=== PATIENT | female | born 1950 | race Caucasian/White ===

== ENCOUNTER 2018-01-05 14:38 | Emergency (ER) | payer MEDICARE | END 2018-01-05 15:27 | disposition home or self-care (01) | LOC: SCSER 14:38 | DX: G89.29 Other chronic pain (principal); M54.5 Low back pain; M79.7 Fibromyalgia; D50.0 Iron deficiency anemia secondary to blood loss (chronic); E11.9 Type 2 diabetes mellitus without complications; I10 Essential (primary) hypertension; Z79.899 Other long term (current) drug therapy; Z79.891 Long term (current) use of opiate analgesic | CPT/HCPCS: 99282 ==

== ENCOUNTER 2019-10-31 21:16 | Observation (INO) | payer MEDICARE ==
[~2019-10-31 21:16] MED LIST: Iopamidol 370 76% 100 ML VIAL ONE
[2019-10-31] MEDS ORDERED: Morphine 4 MG/ML VIAL ONE (22:29)
[2019-10-31] MEDS ORDERED: Ondansetron PF 4 MG/2 ML Vial ONE (22:29)
--- NOTE | 2019-10-31 22:41 | RAD ---
EXAM: XR Chest 1 View Portable PROVIDED CLINICAL HISTORY: Nausea and vomiting COMPARISON: 06/29/2017 FINDINGS: Cardiac and mediastinal silhouette is unchanged in appearance. Diffuse prominence of the pulmonary in terstitium is redemonstrated. No focal consolidation, pleural fluid or pneumothorax apparent. IMPRESSION: Stable radiographic appearance of the chest.
[2019-10-31] MEDS ORDERED: Diltiazem 125 MG/25 ML ONE (22:49)
[2019-10-31 23:00] LABS: #Eosinphils 0.8 thou/uL (0.0-0.7); #Lymphocytes 2.6 thou/uL (1.20-3.40); #Monocytes 0.6 thou/uL (0.11-0.59); #Neutrophils 5.1 thou/uL (1.40-6.50); %Basophils 0.4 % (0.0-1.0); %Eosinophils 8.4 % (0.0-10.0); %Lymphocytes 28.2 % (21.0-51.0); %Monocytes 6.8 % (0.0-10.0); %Neutrophils 56.3 % (42.0-75.0); Hemoglobin 13.4 g/dL (12.0-16.0); Mean Corpuscular Hemoglobin 29.5 pg (27.0-31.0); Mean Corpuscular Volume 89.5 fL (78.0-98.0); Mean Platelet Volume 7.5 fL (7.4-10.4); Platelet Count 296 thou/uL (130-400); RBC Distribution Width 12.3 % (11.5-14.5); Red Blood Cell (RBC) Count 4.54 mill/uL (4.20-5.40); White Blood Cell (WBC) Count 9.1 thou/uL (4.8-10.8)
[2019-10-31 23:21] LABS: ALT (SGPT) 10 U/L (8-55); AST (SGOT) 13 U/L (5-34); Albumin 3.8 g/dL (3.4-4.8); Alkaline Phosphatase 71 U/L (40-110); Anion Gap 11 mmol/L (10-20); BUN (Urea Nitrogen) 6 mg/dL (9.8-20.1); Bilirubin, Total 0.7 mg/dL (0.2-1.2); CK (CPK) 46 U/L (29-168); Calc. Creatinine Clearance 0 mL/min (70-130); Calcium 9.3 mg/dL (7.8-10.44); Carbon Dioxide 26 mmol/L (23-31); Chloride 99 mmol/L (98-107); Estimated GFR-MDRD 56; Glucose 174 mg/dL (80-115); Lipase 821 U/L (8-78); Potassium 4.1 mmol/L (3.5-5.1); Protein, Total 7.8 g/dL (6.0-8.3); Sodium 132 mmol/L (136-145)
[2019-10-31 23:43] LABS: CKMB 1.1 ng/mL (0-6.6)
[2019-10-31 23:51] LABS: Bilirubin Negative (Negative); Blood, Urine Negative (Negative); Clarity Clear (Clear); Glucose, Urine (Dipstick) 100 mg/dL (Negative); Leukocyte Negative Leu/uL (Negative); Nitrite Negative (Negative); Protein, Urine (Dipstick) Negative (Neg-Trace); Urobilinogen Normal mg/dL (Less than 2)
--- NOTE | 2019-10-31 23:59 | CT ---
EXAM: CT Abdomen Pelvis W Con PROVIDED CLINICAL HISTORY: Abdominal pain COMPARISON: 07/23/2014 FINDINGS: The visualized lung bases demonstrate interstitial thickening. There is enlargement of the uncinate process of the pancreas with surrounding fat stranding. The solid abdominal organs demonstrate an otherwise unremarkable. Changes of prior cholecystectomy. There is no bowel dilatation, additional inflammatory fat stranding, free fluid or free air apparent. Vascular calcifications are seen postoperative and degenerative changes involving the lumbar spine. IMPRESSION: Findings compatible with uncomplicated pancreatitis involving the uncinate process.
[2019-11-01] MEDS ORDERED: Morphine 2 MG/ML SYRINGE ONE (01:17)
[2019-11-01] MEDS ORDERED: Sodium Chloride 0.9% 1,000 ML IV SCH (01:59)
[2019-11-01] MEDS ORDERED: Morphine 2 MG/ML SYRINGE SLOW IVP PRN (02:00)
[2019-11-01 03:00] VITALS: BMI 32.2
[2019-11-01] MEDS ORDERED: Calcium Carbonate 500 MG ChewTAB PO PRN (03:43)
[2019-11-01] MEDS ORDERED: Ondansetron PF 4 MG/2 ML Vial IVP PRN (03:43)
[2019-11-01] MEDS ORDERED: Acetaminophen 325 MG TAB PO PRN (03:43)
[2019-11-01] MEDS ORDERED: Ondansetron ODT 4 MG TAB PO PRN (03:43)
[2019-11-01] MEDS ORDERED: Bisacodyl 10 MG SUPP PR PRN ×2 (03:43→08:13)
[2019-11-01] MEDS ORDERED: Acetaminophen 650 MG Suppository PR PRN (03:43)
[2019-11-01] MEDS ORDERED: Senokot S 8.6-50 MG TAB PO PRN (03:43)
[2019-11-01] MEDS ORDERED: Dextrose 50% Abboject 50 ML SYRINGE SLOW IVP PRN (03:45)
[2019-11-01] MEDS ORDERED: Insulin Regular 300 UNITS/3 ML VIAL SC PRN (03:45)
[2019-11-01] MEDS ORDERED: Dextrose 5% in Water 1,000 ML IV PRN (03:45)
[2019-11-01] MEDS ORDERED: cloNIDine 0.1 MG TAB PO PRN (03:47)
[2019-11-01] MEDS ORDERED: Cyclobenzaprine 10 MG TAB PO PRN (03:48)
[2019-11-01] MEDS ORDERED: Labetalol HCl 100 MG/20 ML VIAL SLOW IVP PRN (03:49)
--- NOTE | 2019-11-01 04:08 | HP ---
CHIEF COMPLAINT: Abdominal discomfort PRIMARY CARE PHYSICIAN: Dr. Dayami Villegas. HISTORY OF PRESENT ILLNESS: The patient is a 69-year-old female with cholecystectomy in the past, diabetes mellitus type 2, and recurrent pancreatitis, presented to the emergency room with above complaints. She initially presented to [facility] and was transferred to this facility for hospital admission. The abdominal pain is localized in the epigastric region. It is [id number]-[id number] in intensity, constant with intermittent waxing. The pain usually gets worse after eating. The pain has been present for last 10 days. The patient has poor appetite due to persistent pain. She felt nauseous, however, denies any vomiting. Her last bowel movement was approximately 5 days ago. She denies any fever, chills, or jaundice. No chest pain, palpitations, or syncope reported. PAST MEDICAL HISTORY: 1. Hypertension. 2. Diabetes mellitus type 2. 3. Hyperlipidemia. 4. Fibromyalgia. 5. Chronic iron-deficiency anemia. 6. History of recurrent pancreatitis. PAST SURGICAL HISTORY: 1. Cholecystectomy. 2. section. 3. Hysterectomy. 4. Colonoscopy. 5. Back surgery. 6. Left hand surgery. ALLERGIES: NO KNOWN DRUG ALLERGIES. CURRENT HOME MEDICATIONS: The patient is unable to recall any of her home medications. will bring the list of medications in a.m. SOCIAL HISTORY: The patient currently lives at home with her . She is full code, makes her own decision with the help of her . She currently smokes less than half pack a day. No alcohol use reported. FAMILY HISTORY: Negative for GI malignancy. REVIEW OF SYSTEMS: All other review of systems reviewed and were found negative. PHYSICAL EXAMINATION: VITAL SIGNS: Showed temperature 98.3, respirations 20, pulse of 96, blood pressure of 214/91 with O2 saturation 97% on room air. GENERAL: A 69-year-old female, in mild distress due to epigastric discomfort. HEENT: Head, atraumatic and normocephalic. Sclerae anicteric. Moist mucous membranes. No oral lesion. NECK: Supple. No JVD. No carotid bruit. LUNGS: Clear to auscultation bilaterally. No wheezing, rales, or rhonchi. HEART: S1 and S2 present. Regular. No rubs or gallops. ABDOMEN: Soft. Significant tenderness in the epigastric region radiating to her back. No rebound or guarding. No costovertebral angle tenderness. Bowel sounds are present. EXTREMITIES: No edema or calf tenderness. NEUROLOGY: Grossly nonfocal. Moves all 4 extremities. PSYCHIATRY: Alert, awake, and oriented x3. Normal affect. PERIPHERAL VASCULAR: Radial pulses palpable bilaterally. MUSCULOSKELETAL: No joint swelling or tenderness. LABORATORY FINDINGS: WBC 9.1 with hemoglobin 13.4. Lipase 821. Troponin 0.032 with normal CK-MB. Sodium 132, potassium 4.1, chloride 99, bicarb 26, BUN of 6, creatinine 0.98. Urinalysis showed ketones with glucose. IMAGING STUDIES: Chest x-ray by my review was negative for infiltrate. CT scan of the abdomen and pelvis with contrast by my review showed findings consistent with pancreatitis involving the uncinate process. EKG by my review showed sinus rhythm without significant ST-T wave changes. IMPRESSION: 1. Epigastric discomfort secondary to acute uncomplicated pancreatitis. This is a 5th episode of episode of pancreatitis in the last few years. 2. Diabetes mellitus type 2. 3. Hypertension. 4. Hyperlipidemia. 5. Type 2 myocardial infarction. 6. Hyponatremia. 7. Obesity with a BMI of 32.2. 8. Dehydration. PLAN: The patient will be monitored on the medical floor. She will be kept n.p.o. except for ice chips. Gastroenterology Team will be consulted. We will continue pain control with morphine as needed. A repeat troponin was negative. We will confirm home medications and start accordingly. She denies any new changes in her medications except for Jardiance that was started approximately 1 month ago. Plan was discussed with the patient in detail. She stated understanding. Job ID: [id number]
[2019-11-01] MEDS: Insulin Regular 300 UNITS/3 ML VIAL SC PRN (05:05)
[2019-11-01] MEDS: Dextrose 5 % And 0.9 % NaCl 1,000 ML IV SCH ×4 (06:26→23:50)
[2019-11-01] MEDS ORDERED: Sodium Chloride 0.65% Nasal 44 ML BOT EA NARE PRN (08:13)
[2019-11-01] MEDS ORDERED: Zolpidem Tartrate 5 MG TAB PO PRN (08:13)
[2019-11-01] MEDS ORDERED: Cepastat Lozenges 1 LOZ PO PRN (08:13)
[2019-11-01] MEDS ORDERED: Loperamide HCl 2 MG CAP PO PRN (08:13)
[2019-11-01] MEDS ORDERED: Diabetic Tussin 200 MG/10 ML UDCUP PO PRN (08:13)
[2019-11-01] MEDS ORDERED: Loratadine 10 MG TAB PO PRN (08:13)
[2019-11-01] MEDS: Carvedilol 6.25 MG TAB PO SCH ×2 (08:37→17:15)
[2019-11-01] MEDS: Lisinopril 20 MG TAB PO SCH ×2 (08:37→20:48)
[2019-11-01] MEDS: Famotidine 20 MG TAB PO SCH ×2 (08:39→20:48)
[2019-11-01] MEDS ORDERED: cloNIDine 0.1 MG TAB PO SCH ×2 (09:00→21:00)
--- NOTE | 2019-11-01 11:52 | PDOC.HOSPP ---
- Subjective Encounter Date: 11/01/19 Encounter Time: 08:50 Subjective: Patient seen and examined. No new complaints. No overnight events - Objective Vital Signs & Weight: Vital Signs (12 hours) Temp Pulse Resp BP BP BP Pulse Ox 11/01/19 11:32 97.5 F L 71 16 159/79 H 95 11/01/19 08:37 115/71 11/01/19 07:59 97.6 F 87 16 115/71 96 11/01/19 04:21 97.6 F 94 18 126/76 95 11/01/19 02:41 98.4 F 94 18 179/98 H 94 L Weight Weight 181 lb 14.102 oz Result Diagrams: 10/31/19 22:52 10/31/19 22:52 Additional Labs: Accuchecks 11/01/19 11/01/19 11/01/19 11:37 09:16 04:53 POC Glucose 122 H 147 H 181 H Radiology Reviewed by me: Yes Hospitalist ROS - Review of Systems ENT: denies: ear pain, ear discharge, nose pain, nose discharge, nose congestion , mouth pain, mouth swelling, throat pain, throat swelling, other Respiratory: denies: cough, dry, shortness of breath, hemoptysis, SOB with excertion, pleuritic pain, sputum, wheezing, other Cardiovascular: denies: chest pain, palpitations, orthopnea, paroxysmal noc. dyspnea, edema, light headedness, other Gastrointestinal: denies: nausea, vomiting, abdominal pain, diarrhea, constipation, melena, hematochezia, other Genitourinary: denies: dysuria, frequency, incontinence, hematuria, retention, other Musculoskeletal: denies: neck pain, shoulder pain, arm pain, back pain, hand pain, leg pain, foot pain, other - Medication Medications: Active Medications Generic Name Dose Route Start Last Admin Trade Name Freq PRN Reason Stop Dose Admin Carvedilol 12.5 mg 11/01/19 08:00 11/01/19 08:37 Coreg PO Not Given BID-WM KRISTOPHER Famotidine 20 mg 11/01/19 09:00 11/01/19 08:39 Pepcid PO 20 mg BID KRISTOPHER Administration Dextrose/Sodium Chloride 1,000 mls @ 125 mls/hr 11/01/19 03:45 11/01/19 06:26 D5 0.9% Ns IV Not Given .Q8H [facility] Insulin Human Regular 0 units 11/01/19 03:45 11/01/19 05:05 Humulin R SC 2 unit .MODERATE SLIDING SC PRN Administration Moderate Correctional Scale Lisinopril 20 mg 11/01/19 09:00 11/01/19 08:37 Zestril PO Not Given BID KRISTOPHER Morphine Sulfate 2 mg 11/01/19 02:00 11/01/19 05:07 Morphine SLOW IVP 11/01/19 12:21 2 mg Q2H PRN Administration Pain Sodium Chloride 10 ml 11/01/19 09:00 11/01/19 08:40 Flush - Normal Saline IVF Not Given Q12HR KRISTOPHER - Exam General Appearance: NAD, awake alert Eye: PERRL, anicteric sclera ENT: normocephalic atraumatic, no oropharyngeal lesions Neck: supple, symmetric, no JVD, no thyromegaly Heart: RRR, no murmur, no gallops, no rubs Respiratory: CTAB, no wheezes, no rales, no ronchi Gastrointestinal: soft, non-tender, non-distended, normal bowel sounds Extremities: no cyanosis, no clubbing, no edema Skin: normal turgor, no lesions Neurological: no focal deficits Musculoskeletal: normal tone, normal strength Psychiatric: normal affect, normal behavior, A&O x 3 Hosp A/P (1) Acute pancreatitis Code(s): K85.90 - ACUTE PANCREATITIS WITHOUT NECROSIS OR INFECTION, UNSP Status: Acute (2) Diabetes type 2, controlled Code(s): E11.9 - TYPE 2 DIABETES MELLITUS WITHOUT COMPLICATIONS Status: Acute (3) Hypertension Code(s): I10 - ESSENTIAL (PRIMARY) HYPERTENSION Status: Chronic (4) Obesity (BMI 30.0-34.9) Code(s): E66.9 - OBESITY, UNSPECIFIED Status: Chronic (5) Anxiety and depression Code(s): F41.9 - ANXIETY DISORDER, UNSPECIFIED; F32.9 - MAJOR DEPRESSIVE DISORDER, SINGLE EPISODE, UNSPECIFIED Status: Chronic - Plan old records reviewed/req 11/01/19 continue NPO, has improvement, GI consulted, advance diet as tolerated medication reviewed and continue to provide symptomatic treatment
[2019-11-01] MEDS: HYDROcodone/Acetaminophen 5/325 mg Tablet PO PRN ×2 (12:59→20:53)
--- NOTE | 2019-11-01 16:38 | CON ---
DATE OF CONSULTATION: 11/01/2019 REQUESTING PHYSICIAN: Dr. Pimentel. REASON FOR CONSULTATION: Pancreatitis. HISTORY OF PRESENT ILLNESS: Sania Ren is a very pleasant 69-year-old woman, who was admitted to the hospital overnight with recurrent pancreatitis. She has a history of obesity, diabetes type 2. She has had a cholecystectomy in the past. She reports 4 prior episodes of recurrent acute pancreatitis. She states her last episode was almost a year ago elsewhere when she was hospitalized for about a week. She states that her pancreatitis has been characterized as idiopathic. She does not drink alcohol. At one point, it was thought that her Januvia was possibly causing pancreatitis since that was discontinued, but she has not gone back on that. She does smoke. On this occasion, she says that for about the past 10 days, she has been having epigastric pain. This is essentially constant with periods of exacerbation, it worsened last night, which prompted her presentation. She has had nausea, but no vomiting. Her last bowel movement was 4 to 5 days ago. She has been afebrile. Today, her pain has been well controlled. She is receiving normal saline at 100 mL/h. Laboratory studies were all favorable and a CT of the abdomen and pelvis just demonstrates some stranding and edema of the uncinate process of the pancreas with no complications and changes of prior cholecystectomy. REVIEW OF SYSTEMS: Full review of systems including constitutional; head, eyes, ears, nose, and throat; GI; ; cardiovascular; respiratory; musculoskeletal; neurologic systems is negative except as noted in the HPI. PAST MEDICAL HISTORY: Cholecystectomy, hysterectomy, back surgery, , recurrent acute pancreatitis, diabetes type 2, fibromyalgia, hypertension, hyperlipidemia, obesity, 2014 EGD normal, colonoscopy with poor bowel prep. FAMILY HISTORY: Negative for GI malignancy. SOCIAL HISTORY: The patient does smoke less than a pack of cigarettes per day. No alcohol use. ALLERGIES: NO KNOWN DRUG ALLERGIES. OUTPATIENT MEDICATIONS: 1. Hydrocodone p.r.n. 2. Glimepiride. 3. Clonidine. 4. Lisinopril. 5. Pravastatin. 6. Labetalol. 7. Tramadol. 8. Duloxetine. 9. Cyclobenzaprine. 10. Jardiance. 11. Insulin. PHYSICAL EXAMINATION: VITAL SIGNS: Temperature 97.5, pulse 71, blood pressure 159/79, and 95% oxygen saturation on room air. GENERAL: A 69-year-old woman, lying in bed comfortably, in no distress. She is somnolent, but arousable, unable to answer questions appropriately. SKIN: No jaundice. No rashes were palpable. EYES: No scleral icterus. Extraocular movements are intact. ENT: Mucous membranes are moist. No oral lesions. LYMPH: No submandibular or supraclavicular lymphadenopathy. THYROID: Nontender to palpation. HEART: Regular rate and rhythm. LUNGS: Clear to auscultation bilaterally. ABDOMEN: Bowel sounds are hypoactive, but present. The abdomen is soft. Some mild tenderness to palpation in the epigastrium, but no guarding or rebound tenderness. EXTREMITIES: No peripheral edema. VESSELS: Radial pulses 2+ bilaterally. NEURO: Cranial nerves 2 through 12 intact bilaterally. No focal deficits. LABORATORY STUDIES: WBC 9.1, hemoglobin 13.4, platelets 296. Sodium 132, potassium 4.1, BUN 6, creatinine 0.98, glucose 147, total bilirubin 0.7, alkaline phosphatase 71, AST 13, ALT 10, albumin 3.8, lipase elevated at 821. IMAGING STUDIES: Chest x-ray shows prominence of the pulmonary interstitium, which is stable. No acute processes. CT of the abdomen and pelvis demonstrates postoperative changes in cholecystectomy. There is some stranding and edema of the uncinate process of the pancreas with no complications. The CT is otherwise unremarkable. ASSESSMENT AND PLAN: Acute recurrent pancreatitis, uncomplicated. The etiology of the patient's recurrent episodes of pancreatitis is unknown. She does not drink alcohol. She is post cholecystectomy and LFTs are normal, so biliary etiology is unlikely. I discussed with the patient that in the coming weeks after resolution of this episode, we will try to help arrange for referral for endoscopic ultrasound, examination of the pancreas, to rule out any structural abnormality that might be underlying this. I doubt any neoplastic or malignant process, given the multiple episodes over several years. With regard to this acute episode, laboratory studies are all favorable. She is being appropriately resuscitated and treated with pain control. I would keep her n.p.o. for the rest of the day. Once her pain requirements are decreasing and she is starting to feel hungry, could hopefully try to advance diet as tolerated within the next couple of days. No other recommendations from a GI perspective at this time. Thank you for the consultation. Please call anytime with questions or concerns. Job ID: [id number]
[2019-11-01] MEDS ORDERED: DULoxetine 30 MG CAP PO SCH (21:00)
[2019-11-02] MEDS: Insulin Regular 300 UNITS/3 ML VIAL SC PRN ×2 (03:37→09:20)
[2019-11-02 06:13] LABS: #Eosinphils 0.6 thou/uL (0.0-0.7); #Lymphocytes 1.6 thou/uL (1.20-3.40); #Monocytes 0.5 thou/uL (0.11-0.59); #Neutrophils 2.6 thou/uL (1.40-6.50); %Basophils 0.5 % (0.0-1.0); %Eosinophils 11.3 % (0.0-10.0); %Lymphocytes 29.8 % (21.0-51.0); %Monocytes 9.3 % (0.0-10.0); %Neutrophils 49.1 % (42.0-75.0); Hemoglobin 12.2 g/dL (12.0-16.0); Mean Corpuscular HGB CONC 32.3 g/dL (32.0-36.0); Mean Corpuscular Hemoglobin 28.7 pg (27.0-31.0); Mean Platelet Volume 7.7 fL (7.4-10.4); Platelet Count 252 thou/uL (130-400); RBC Distribution Width 12.3 % (11.5-14.5); Red Blood Cell (RBC) Count 4.25 mill/uL (4.20-5.40); White Blood Cell (WBC) Count 5.3 thou/uL (4.8-10.8)
[2019-11-02 06:40] LABS: ALT (SGPT) 9 U/L (8-55); AST (SGOT) 16 U/L (5-34); Albumin 3.2 g/dL (3.4-4.8); Alkaline Phosphatase 60 U/L (40-110); Anion Gap 12 mmol/L (10-20); BUN (Urea Nitrogen) 7 mg/dL (9.8-20.1); Bilirubin, Total 0.4 mg/dL (0.2-1.2); Calc. Creatinine Clearance 77 mL/min (70-130); Calcium 8.5 mg/dL (7.8-10.44); Carbon Dioxide 19 mmol/L (23-31); Chloride 106 mmol/L (98-107); Estimated GFR-MDRD 63; Globulin 3.4 g/dL (2.4-3.5); Glucose 212 mg/dL (80-115); Lipase 324 U/L (8-78); Magnesium 1.6 mg/dL (1.6-2.6); Phosphorus 2.4 mg/dL (2.3-4.7); Protein, Total 6.6 g/dL (6.0-8.3); Sodium 133 mmol/L (136-145); Triglycerides 81 mg/dL (Less than 150)
[2019-11-02] MEDS ORDERED: Dextrose 5 % And 0.9 % NaCl 1,000 ML IV SCH (08:22)
[2019-11-02] MEDS ORDERED: Sodium Chloride 0.45% 1,000 ML IV SCH (08:30)
[2019-11-02] MEDS ORDERED: Glimepiride 4 MG TAB PO SCH (09:00)
[2019-11-02] MEDS: Lisinopril 20 MG TAB PO SCH (09:19)
[2019-11-02] MEDS: Carvedilol 6.25 MG TAB PO SCH ×2 (09:19→18:36)
[2019-11-02] MEDS: Famotidine 20 MG TAB PO SCH (09:20)
[2019-11-02 16:22] VITALS: TEMP 98.7
[2019-11-02 18:37] VITALS: BP 144/75
--- NOTE | 2019-11-03 15:27 | DIS ---
DATE OF ADMISSION: 11/01/2019 DATE OF DISCHARGE: 11/02/2019 PRIMARY CARE PHYSICIAN: Dr. Dayami Villegas. DISCHARGE DISPOSITION: Home. PRIMARY DISCHARGE DIAGNOSES: Acute pancreatitis. SECONDARY DISCHARGE DIAGNOSES: Diabetes type 2, anxiety and depression, hypertension, obesity. PRIMARY PROCEDURE/OPERATION: None. RADIOLOGIST INVESTIGATION: Abdomen and pelvis CT scan showed uncomplicated pancreatitis. SIGNIFICANT LABORATORY DATA: WBC 5.3, hemoglobin 12.2, platelet 252. Sodium 133, creatinine 0.89, lipase 324. DISCHARGE MEDICATION: 1. Clonidine 0.1 mg p.o. at bedtime. 2. Flexeril 10 mg t.i.d. p.r.n. 3. Cymbalta 60 mg bedtime. 4. Empagliflozin 10 mg daily. 5. Glimepiride 4 mg daily. 6. Gardner 5 mg one or two tablets q.6 hourly p.r.n. 7. Tresiba 40 units subcu daily. 8. Labetalol 100 mg daily. 9. Lisinopril 20 mg b.i.d. 10. Pravastatin 20 mg p.o. at bedtime. 11. Tramadol ER 300 mg p.o. daily. CONTRAINDICATION: None. CODE STATUS: Full code. INPATIENT MAINTENANCE TECHNICIAN 3RD SHIFT: Dr. Braden Kimble was consulted while in the hospital. TEST RESULTS PENDING ON DISCHARGE: None. ALLERGIES: NO KNOWN DRUG ALLERGY. DISCHARGE PLAN: Posthospital the patient is instructed to follow up with Dr. Braden Kimble for outpatient endoscopic ultrasound. HOSPITAL COURSE: A 69-year-old female, who was admitted by Dr. Wily Pimentel. Please see his H and P for further details. The patient presented to emergency room with epigastric abdominal pain. Her CT abdomen and pelvis consistent with an uncomplicated pancreatitis. The patient routine blood test also showed elevated lipase. The patient was admitted to the hospital and she was treated in standard fashion with n.p.o., pain controlled with narcotics, IV fluid, and gastroenterology consultation. The next day, the patient had significant improvement. Her lipase improved and we advanced her diet slowly to regular low-fat, low-cholesterol diet. The patient was instructed to follow up with Gastroenterology because the patient is recommended to have outpatient endoscopic ultrasound for further evaluation. The patient was seen and examined on the day of discharge. The patient was discharged on November 02, 2019, and I have seen this patient at bedside. DISCHARGE PHYSICAL EXAMINATION: VITAL SIGNS: On the day of discharge, her vital signs currently temperature 98.7, pulse 67, respiratory rate 14, saturation 96%, blood pressure 154/75. Weight 181 pounds. GENERAL: The patient is alert and oriented x3. HEAD: Normocephalic, atraumatic. EYES: Pupils round, reactive to light. Extraocular muscle intact. ENT: Oropharynx within normal limits. Moist mucous membranes. No oral lesion. No pharyngeal erythema. No exudate. NECK: Supple. No JVD. No meningeal signs of irritation. LUNGS: Clear to auscultation without any rhonchi or rales. CARDIAC: S1, S2. Regular without any murmur. No gallop. No rub. ABDOMEN: Soft, bowel sounds present, nontender, nondistended. No organomegaly. No mass. EXTREMITIES: No edema. NEUROLOGIC: Nonfocal examination. Job ID: [id number]
--- NOTE | 2019-11-06 10:33 | DIS ---
DATE OF ADMISSION: 11/01/2019 DATE OF DISCHARGE: 11/02/2019 DISCHARGE DISPOSITION: Home. PRIMARY DISCHARGE DIAGNOSIS: Acute pancreatitis. SECONDARY DISCHARGE DIAGNOSES: Diabetes type 2, anxiety and depression, hypertension, obesity with BMI 33. PRIMARY PROCEDURE/OPERATION: None. RADIOLOGIST INVESTIGATION: Abdomen and pelvis CT scan showed acute pancreatitis. Chest x-ray normal. SIGNIFICANT LABORATORY DATA: CBC normal. Lipase 324 on discharge. BMP normal. LFT normal. DISCHARGE MEDICATIONS: The patient will continue all her previous medication without any change. CONTRAINDICATION: None. CODE STATUS: Full code. INPATIENT ACCOUNTS RECEIVABLE COORDINATOR: GI team was consulted while in hospital. TEST RESULT PENDING ON DISCHARGE: None. ALLERGIES: NO KNOWN DRUG ALLERGIES. DISCHARGE PLAN: Post hospital, the patient will follow up with primary care physician as well as GI and the patient will get outpatient endoscopic ultrasound referral. HOSPITAL COURSE: A 69-year-old female, who was admitted for acute pancreatitis. Please see Dr. Pimentel's H and P for more detail. Gastroenterology was consulted while in hospital. The patient had acute pancreatitis which was uncomplicated and she was treated with standard fashion with n.p.o., hydration, IV fluid, and pain control with pain medication and condition improved. The patient will need outpatient endoscopic ultrasound that is why the patient will follow up with GI. The patient was stable for discharge. Job ID: [id number]
== END 2019-11-02 17:50 | disposition home or self-care (01) ==
LOC: ERS 21:16 → SURG B 11-01 02:01 → INTOOBSV 11-01 02:01
PROVIDERS: ADMIT Internal Medicine; ATTEND Internal Medicine
DX: K85.90 Acute pancreatitis without necrosis or infection, unspecified (principal); I10 Essential (primary) hypertension; E11.9 Type 2 diabetes mellitus without complications; E66.9 Obesity, unspecified; F17.210 Nicotine dependence, cigarettes, uncomplicated; F41.9 Anxiety disorder, unspecified; F32.9 Major depressive disorder, single episode, unspecified; D50.9 Iron deficiency anemia, unspecified; E78.5 Hyperlipidemia, unspecified; E86.0 Dehydration; I21.A1 Myocardial infarction type 2; Z68.32 Body mass index [BMI] 32.0-32.9, adult; Z79.4 Long term (current) use of insulin; Z79.899 Other long term (current) drug therapy
CPT/HCPCS: 71045; 74177; 80053 ×2; 81003; 82550; 82553; 82962 ×2; 83690 ×2; 83735; 83880; 84100; 84478; 84484 ×2; 85025 ×2; 86140; 93005; 96361; 96374; 96375; 96376 ×2; 99285; G0378 ×2; 36415; 36416; J1815; J2270; J2405; Q9967

== ENCOUNTER 2019-12-19 16:00 | Emergency (ER) | payer MEDICARE ==
[~2019-12-19 16:00] MED LIST changes: -Iopamidol 370 76% 100 ML VIAL ONE; +Iopamidol-370 76% 500 ML 1 ML ONE
[2019-12-19] MEDS ORDERED: Albuterol Sulfate 2.5 mg/3 ml Neb ONE (16:18)
[2019-12-19] MEDS ORDERED: Albuterol Sulfate 2.5 mg/0.5 ml Neb ONE (16:18)
[2019-12-19] MEDS ORDERED: Azithromycin 500 MG VIAL ONE (16:30)
[2019-12-19] MEDS ORDERED: Dexamethasone 10 MG/ML VIAL ONE (16:30)
[2019-12-19] MEDS ORDERED: cefTRIAXone\\ROCEPHIN 2 GM VIAL ONE (16:30)
[2019-12-19] MEDS ORDERED: Magnesium 2 GM/50 ML BAG (IN WATER) ONE (16:30)
[2019-12-19 16:43] LABS: Actual Bicarbonate (HCO3a) 27.7 mEq/L (22-28); Analyzer IN Cardio ER; Base Excess (BEa) 2.3 mEq/L (-2.0 to +3.0); CO2 Tension 46.2 mmHg (35.0-45.0); Calcium, Ionized 1.16 mmol/L (1.12-1.30); Carboxyhemoglobin (COHb) 0.6 gm% (0.0-3.0); Hemoglobin (Hb) 12.9 g/dL (12.0-16.0); O2 Tension (PaO2) 73.9 mmHg (> 70.0)
[2019-12-19 16:46] LABS: Puncture Site RRA
[2019-12-19 16:57] LABS: #Eosinphils 0.8 thou/uL (0.0-0.7); #Monocytes 0.4 thou/uL (0.11-0.59); #Neutrophils 2.7 thou/uL (1.40-6.50); %Basophils 0.3 % (0.0-1.0); %Lymphocytes 44.2 % (21.0-51.0); %Monocytes 5.1 % (0.0-10.0); %Neutrophils 39.4 % (42.0-75.0); Hemoglobin 12.4 g/dL (12.0-16.0); Mean Corpuscular HGB CONC 33.3 g/dL (32.0-36.0); Mean Corpuscular Hemoglobin 29.6 pg (27.0-31.0); Mean Platelet Volume 7.7 fL (7.4-10.4); Platelet Count 248 thou/uL (130-400); RBC Distribution Width 12.7 % (11.5-14.5); Red Blood Cell (RBC) Count 4.19 mill/uL (4.20-5.40); White Blood Cell (WBC) Count 6.9 thou/uL (4.8-10.8)
--- NOTE | 2019-12-19 17:00 | RAD ---
PORTABLE CHEST: 12/19/19 HISTORY: Cough. COMPARISON: 10/31/19 exam and 06/29/17 study. Heart size within normal limits. Chronic interstitial lung changes are seen. The interstitial change s in the lung bases appears slightly more prominent than the 10/31/29 exam but I think the difference is just technique related. IMPRESSION: Chronic appearing lung change. No definite acute process. POS: [facility]
[2019-12-19 17:21] LABS: ALT (SGPT) 11 U/L (8-55); AST (SGOT) 14 U/L (5-34); Alkaline Phosphatase 94 U/L (40-110); Anion Gap 11 mmol/L (10-20); BUN (Urea Nitrogen) 13 mg/dL (9.8-20.1); Bilirubin, Total 0.3 mg/dL (0.2-1.2); CK (CPK) 102 U/L (29-168); Calc. Creatinine Clearance 0 mL/min (70-130); Calcium 9.2 mg/dL (7.8-10.44); Carbon Dioxide 28 mmol/L (23-31); Chloride 100 mmol/L (98-107); Estimated GFR-MDRD 46; Globulin 4.3 g/dL (2.4-3.5); Glucose 244 mg/dL (80-115); Lipase 52 U/L (8-78); Potassium 4.3 mmol/L (3.5-5.1); Protein, Total 8.3 g/dL (6.0-8.3); Sodium 135 mmol/L (136-145)
[2019-12-19 17:39] LABS: CKMB 1.8 ng/mL (0-6.6)
[2019-12-19 18:31] LABS: Bilirubin Negative (Negative); Blood, Urine Negative (Negative); Clarity Clear (Clear); Glucose, Urine (Dipstick) 300 mg/dL (Negative); Leukocyte Negative Leu/uL (Negative); Nitrite Negative (Negative); Protein, Urine (Dipstick) Negative (Neg-Trace); Urobilinogen Normal mg/dL (Less than 2)
[2019-12-19 19:08] LABS: Troponin I 0.045 ng/mL (< 0.028)
--- NOTE | 2019-12-19 19:11 | CT ---
CT ANGIO OF CHEST PERFORMED WITH INTRAVENOUS CONTRAST ENHANCEMENT WITH 3D RECONSTRUCTIONS: 12/19/19 HISTORY: Cough, onset three weeks ago. Surgical history of cholecystectomy. COMPARISON: CT abdomen and pelvis dated 05/31/19. There are chronic interstitial appearing lung changes seen. There is a prominent bulla in the left lo wer lobe. I do not see any confluent infiltrative process. The opacity in the lung bases which shows somewhat ground glass appearance probably related to atelectasis and chronic reticular changes. It is fairly similar to the previous 10/31/19 exam. There is some mild mediastinal and hilar lymphadenopathy. These are smaller nodes. More numerous than typically seen but probably reactive on the basis of the interstitial lung disease. Thyroid gland is normal in size. Thoracic aorta is normal in caliber. There is good pulmonary artery opacification and no CT evidence for pulmonary embolus. The visualized liver parenchyma shows no focal findings. IMPRESSION: 1. Interstitial fibrotic lung change. No definite new infiltrative process. 2. No CT evidence for pulmonary embolus. POS: [facility]
== END 2019-12-19 19:32 | disposition home or self-care (01) ==
LOC: ERS 16:00
DX: J44.1 Chronic obstructive pulmonary disease with (acute) exacerbation (principal); D64.9 Anemia, unspecified; E11.9 Type 2 diabetes mellitus without complications; I10 Essential (primary) hypertension; E78.00 Pure hypercholesterolemia, unspecified; F17.210 Nicotine dependence, cigarettes, uncomplicated; Z79.899 Other long term (current) drug therapy
CPT/HCPCS: 36415; 71045; 71275; 80053; 81003; 82550; 82553; 82805; 83605; 83690; 83880; 84484; 85025; 85379; 87040; 87804; 93005; 94640; 96365; 96367; 96368; 96375; J0456; J0696; J1100; J3475; J7611; J7620; Q9967

== ENCOUNTER 2020-01-13 11:48 | Emergency (ER) | payer MEDICARE ==
[2020-01-13 13:01] LABS: #Basophils 0.1 thou/uL (0.0-0.2); #Eosinphils 1.5 thou/uL (0.0-0.7); #Lymphocytes 2.8 thou/uL (1.20-3.40); #Monocytes 0.4 thou/uL (0.11-0.59); #Neutrophils 3.5 thou/uL (1.40-6.50); %Basophils 1.3 % (0.0-1.0); %Eosinophils 17.9 % (0.0-10.0); %Lymphocytes 33.6 % (21.0-51.0); %Monocytes 5.2 % (0.0-10.0); Hemoglobin 12.4 g/dL (12.0-16.0); Mean Corpuscular HGB CONC 32.7 g/dL (32.0-36.0); Mean Corpuscular Hemoglobin 29.6 pg (27.0-31.0); Mean Corpuscular Volume 90.6 fL (78.0-98.0); Mean Platelet Volume 7.1 fL (7.4-10.4); Platelet Count 332 thou/uL (130-400); RBC Distribution Width 13.3 % (11.5-14.5); Red Blood Cell (RBC) Count 4.19 mill/uL (4.20-5.40); White Blood Cell (WBC) Count 8.4 thou/uL (4.8-10.8)
[2020-01-13 13:22] LABS: ALT (SGPT) 10 U/L (8-55); AST (SGOT) 12 U/L (5-34); Albumin 3.8 g/dL (3.4-4.8); Alkaline Phosphatase 81 U/L (40-110); Anion Gap 14 mmol/L (10-20); BUN (Urea Nitrogen) 14 mg/dL (9.8-20.1); Bilirubin, Total 0.2 mg/dL (0.2-1.2); CK (CPK) 53 U/L (29-168); Calc. Creatinine Clearance 0 mL/min (70-130); Calcium 9.1 mg/dL (7.8-10.44); Carbon Dioxide 28 mmol/L (23-31); Chloride 99 mmol/L (98-107); Estimated GFR-MDRD 44; Globulin 3.5 g/dL (2.4-3.5); Glucose 242 mg/dL (80-115); Lipase 25 U/L (8-78); Potassium 4.3 mmol/L (3.5-5.1); Protein, Total 7.3 g/dL (6.0-8.3); Sodium 137 mmol/L (136-145)
[2020-01-13 13:43] LABS: CKMB 1.2 ng/mL (0-6.6)
[2020-01-13] MEDS ORDERED: Iopamidol-370 76% 500 ML 1 ML ONE (13:58)
--- NOTE | 2020-01-13 14:23 | CT ---
EXAM: Brain CT scan Without contrast: HISTORY: Injury from trauma COMPARISON: None FINDINGS: Atrophy and chronic white matter ischemic change. No focal mass or midline shift. No intra or extra-axial hemorrhage. Fairly extensive sinus mucosal changes involving frontal, ethmoid, maxillary, and sphenoid sinuses wi th possible small air-fluid levels within the left maxillary and right frontal sinus evidence for sinusitis. IMPRESSION: No mass or bleed. Evidence for sinusitis as above.
--- NOTE | 2020-01-13 14:41 | CT ---
CT angiogram chest with IV contrast and 3-D imaging HISTORY: Syncope. Dyspnea. COMPARISON: 12/19/2019. FINDINGS: There is good contrast opacification pulmonary arteries and thoracic aorta with normal bran lambert of the great vessels at the aortic arch. There is calcification throughout the arterial structures. Calcified mediastinal lymph nodes are consistent with healed granulomatous disease. Large area of cystic destruction within the left lower lobe is again demonstrated. Peripheral areas o f linear interstitial thickening extending to the pleural surface throughout each lung, more pronounced at the lung bases, have progressed slightly. No lobar consolidation. No pleural fluid or p neumothorax. IMPRESSION: No CT evidence of pulmonary embolus. Interval progression of symmetric bilateral peripheral interstitial lung disease. Consider atypical i nfection superimposed upon chronic interstitial lung disease.
[2020-01-13 15:27] LABS: Troponin I 0.055 ng/mL (< 0.028)
[2020-01-13 15:29] LABS: Bilirubin Negative (Negative); Blood, Urine Negative (Negative); Glucose, Urine (Dipstick) 250 mg/dL (Negative); Leukocyte Trace (Negative); Nitrite Negative (Negative); Protein, Urine (Dipstick) Negative (Neg-Trace); Urobilinogen 0.2 mg/dL (Less than 2)
[2020-01-13 15:33] LABS: Bacteria/HPF None Seen HPF (None Seen); Clarity Clear (Clear); RBC/HPF 0-3 HPF (0-3); Squamous Epithelial 0-3 HPF (0-3); WBC/HPF 0-3 HPF (0-3)
== END 2020-01-13 15:54 | disposition home or self-care (01) ==
LOC: ERS 11:48
DX: S00.83XA Contusion of other part of head, initial encounter (principal); J18.9 Pneumonia, unspecified organism; R04.2 Hemoptysis; M79.7 Fibromyalgia; D50.9 Iron deficiency anemia, unspecified; E11.9 Type 2 diabetes mellitus without complications; I10 Essential (primary) hypertension; E78.00 Pure hypercholesterolemia, unspecified; F17.210 Nicotine dependence, cigarettes, uncomplicated; Z79.84 Long term (current) use of oral hypoglycemic drugs; Z79.899 Other long term (current) drug therapy; W19.XXXA Unspecified fall, initial encounter
CPT/HCPCS: 36415; 70450; 71275; 80053; 81003; 81015; 82550; 82553; 83690; 83880; 84484; 85025; 93005; 96360; Q9967

== ENCOUNTER 2022-04-26 10:28 | Inpatient (IN) | payer MEDICARE ==
[2022-04-26 10:58] LABS: Analyzer IN Cardio ER; Base Excess -14.4 mEq/L (-2.0 to +3.0); Calcium, Ionized (venous) 1.06 mmol/L (1.16-1.32); Chloride (VBG) 101 mmol/L (98-106); Hemoglobin (Hb) 17.4 g/dL (11.7-16.1); Sodium 132.6 mmol/L (133-146)
[2022-04-26 11:00] LABS: Actual Bicarbonate (HCO3v) 12 mEq/L (22-28); pH (venous) 7.21 (7.32-7.43)
[2022-04-26 11:16] LABS: Hemoglobin 16.6 g/dL (12.0-16.0); Mean Corpuscular Hemoglobin 30.8 pg (27.0-31.0); Mean Corpuscular Volume 99.3 fL (78.0-98.0); Mean Platelet Volume 8.2 fL (7.4-10.4); Platelet Count 320 thou/uL (130-400); RBC Distribution Width 13.6 % (11.5-14.5); Red Blood Cell (RBC) Count 5.38 mill/uL (4.20-5.40); White Blood Cell (WBC) Count 18.2 thou/uL (4.8-10.8)
[2022-04-26] MEDS ORDERED: cefTRIAXone\\ROCEPHIN 2 GM VIAL ONE (11:21)
[2022-04-26 11:24] LABS: Band 27 % (5-11); Eosinophils 3 % (0-10); Lymphocytes 31 % (21-51); MDiff Complete? YES; Monocytes 3 % (0-10); Neutrophil 35 % (42-75); Platelet Morphology Comment Appears Adequate; Polychromasia SLIGHT = 2-3 cells (100X) (0-2/hpf)
[2022-04-26 11:44] LABS: ALT (SGPT) 21 U/L (8-55); AST (SGOT) 71 U/L (5-34); Albumin 3.3 g/dL (3.4-4.8); Alkaline Phosphatase 101 U/L (40-110); Anion Gap 25 mmol/L (10-20); BUN (Urea Nitrogen) 9 mg/dL (9.8-20.1); Calc. Creatinine Clearance 0 mL/min (70-130); Calcium 9.2 mg/dL (7.8-10.44); Chloride 103 mmol/L (98-107); Globulin 3.6 g/dL (2.4-3.5); Glucose 421 mg/dL (83-110); Phosphorus 5.6 mg/dL (2.3-4.7); Potassium 3.7 mmol/L (3.5-5.1); Protein, Total 6.9 g/dL (5.8-8.1); Sodium 133 mmol/L (136-145)
[2022-04-26 11:46] LABS: INR-International Normal Ratio 2.5; Prothrombin Time 27.5 sec (12.0-14.7)
[2022-04-26 11:47] LABS: PTT 76.5 sec (22.9-36.1)
[2022-04-26 11:50] LABS: Carbon Dioxide 9 mmol/L (23-31)
[2022-04-26] MEDS ORDERED: INSULIN REGULAR IN 0.9 % NACL 100 UNIT/100 ML BAG ONE (11:55)
[2022-04-26] MEDS ORDERED: Aspirin Chewable 81 MG TAB ONE (11:55)
[2022-04-26] MEDS ORDERED: Vancomycin 1 GM/200 ML BAG ONE (11:55)
[2022-04-26] MEDS ORDERED: Ondansetron ODT 4 MG TAB PO PRN (12:55)
[2022-04-26] MEDS ORDERED: Bisacodyl 10 MG SUPP PR PRN (12:55)
[2022-04-26] MEDS ORDERED: NS 0.9% w/ 20 MEQ KCL 1,000 ML IV PRN ×2 (12:55)
[2022-04-26] MEDS ORDERED: Senokot S 8.6-50 MG TAB PO PRN (12:55)
[2022-04-26] MEDS ORDERED: Electrolyte Replacement Protocol 1 EACH IVPB SCH (12:55)
[2022-04-26] MEDS ORDERED: Sodium Chloride 0.9% 1,000 ML IV PRN ×4 (12:55)
[2022-04-26] MEDS ORDERED: Dextrose 5 %-0.45 % NaCl 1,000 ML IV PRN (12:55)
[2022-04-26] MEDS ORDERED: Magnesium Citrate 300 ML BOT PO SCH (13:30)
[2022-04-26] MEDS ORDERED: Mineral Oil ENEMA PR SCH (13:30)
[2022-04-26 13:31] LABS: SARS-CoV-2 NAA Rapid Test Not Detected (NotDetected)
[2022-04-26] MEDS ORDERED: Magnesium 2 GM/50 ML(in water) 2 GM in Premix Bag 1 BAG IVPB SCH (14:00)
[2022-04-26 14:06] LABS: Anion Gap 19 mmol/L (10-20); BUN (Urea Nitrogen) 12 mg/dL (9.8-20.1); Calc. Creatinine Clearance 0 mL/min (70-130); Calcium 8.5 mg/dL (7.8-10.44); Carbon Dioxide 14 mmol/L (23-31); Chloride 105 mmol/L (98-107); Glucose 340 mg/dL (83-110); Potassium 3.3 mmol/L (3.5-5.1); Sodium 135 mmol/L (136-145)
[2022-04-26 14:57] VITALS: BMI 33.0
[2022-04-26 17:48] LABS: Lactic Acid 4.9 mmol/L (0.5-2.2)
[2022-04-26 17:50] LABS: Anion Gap 17 mmol/L (10-20); BUN (Urea Nitrogen) 13 mg/dL (9.8-20.1); Calc. Creatinine Clearance 59 mL/min (70-130); Calcium 8.4 mg/dL (7.8-10.44); Carbon Dioxide 13 mmol/L (23-31); Chloride 111 mmol/L (98-107); Glucose 142 mg/dL (83-110); Potassium 3.8 mmol/L (3.5-5.1); Sodium 137 mmol/L (136-145)
[2022-04-26 18:21] LABS: CKMB 7.2 ng/mL (0-6.6)
[2022-04-26] MEDS: D5 1/2 NS w/20 mEq KCL 1,000 ML IV PRN (20:37)
[2022-04-26] MEDS ORDERED: Vancomycin HCl 1 GM in Sodium Chloride 0.9% 250 ML 300 ML IVPB SCH (21:00)
[2022-04-26 21:17] LABS: Anion Gap 15 mmol/L (10-20); BUN (Urea Nitrogen) 13 mg/dL (9.8-20.1); Calc. Creatinine Clearance 59 mL/min (70-130); Calcium 7.9 mg/dL (7.8-10.44); Carbon Dioxide 16 mmol/L (23-31); Chloride 108 mmol/L (98-107); Glucose 225 mg/dL (83-110); Potassium 3.3 mmol/L (3.5-5.1); Sodium 136 mmol/L (136-145)
[2022-04-26] MEDS: Potassium Chloride 20 MEQ in Premix Bag 1 BAG IVPB SCH (22:48)
[2022-04-27] MEDS: Labetalol HCl 100 MG/20 ML VIAL SLOW IVP PRN ×2 (00:02→15:32)
[2022-04-27] MEDS: Vancomycin 1 GM in Premix Bag 1 BAG IVPB SCH ×2 (00:03→13:21)
[2022-04-27] MEDS: Potassium Chloride 20 MEQ in Premix Bag 1 BAG IVPB SCH (00:49)
[2022-04-27] MEDS: D5 1/2 NS w/20 mEq KCL 1,000 ML IV PRN ×4 (00:50→17:39)
[2022-04-27] MEDS: Morphine 4 MG/ML VIAL SLOW IVP PRN ×6 (00:50→21:13)
[2022-04-27] MEDS: HUMULIN R 100 UNITS in Sodium Chloride 0.9% 100 ML IVPB SCH ×2 (02:54→17:38)
[2022-04-27 03:44] LABS: Hemoglobin 15.7 g/dL (12.0-16.0); Mean Corpuscular HGB CONC 32.3 g/dL (32.0-36.0); Mean Corpuscular Hemoglobin 31.3 pg (27.0-31.0); Mean Corpuscular Volume 96.9 fL (78.0-98.0); Mean Platelet Volume 8.3 fL (7.4-10.4); Platelet Count 224 thou/uL (130-400); RBC Distribution Width 13.6 % (11.5-14.5); Red Blood Cell (RBC) Count 5.02 mill/uL (4.20-5.40); White Blood Cell (WBC) Count 16.5 thou/uL (4.8-10.8)
[2022-04-27 03:48] LABS: Hemoglobin A1c 7.8 % (4.0-6.0)
[2022-04-27 03:50] LABS: INR-International Normal Ratio 1.4; Prothrombin Time 16.9 sec (12.0-14.7)
[2022-04-27 04:17] LABS: Phosphorus 2.4 mg/dL (2.3-4.7)
[2022-04-27 04:18] LABS: ALT (SGPT) 34 U/L (8-55); AST (SGOT) 54 U/L (5-34); Albumin 2.7 g/dL (3.4-4.8); Alkaline Phosphatase 62 U/L (40-110); Anion Gap 14 mmol/L (10-20); BUN (Urea Nitrogen) 13 mg/dL (9.8-20.1); Bilirubin, Total 0.5 mg/dL (0.2-1.2); Calc. Creatinine Clearance 59 mL/min (70-130); Calcium 7.8 mg/dL (7.8-10.44); Carbon Dioxide 15 mmol/L (23-31); Chloride 108 mmol/L (98-107); Globulin 2.8 g/dL (2.4-3.5); Glucose 257 mg/dL (83-110); Magnesium 1.6 mg/dL (1.6-2.6); Protein, Total 5.5 g/dL (5.8-8.1); Sodium 132 mmol/L (136-145)
[2022-04-27] MEDS ORDERED: Magnesium 2 GM/50 ML(in water) 2 GM in Premix Bag 1 BAG IVPB SCH (05:15)
[2022-04-27] MEDS ORDERED: Pantoprazole 40 MG VIAL IVP SCH (09:00)
[2022-04-27 09:40] LABS: Lactic Acid 3.3 mmol/L (0.5-2.2)
[2022-04-27] MEDS ORDERED: Sodium Bicarb 50 MEQ/50 ML VIAL IVP SCH ×3 (10:30→21:00)
[2022-04-27] MEDS ORDERED: cefTRIAXone\\ROCEPHIN 2 GM in Sodium Chloride 0.9% 100 ML IVPB SCH (11:00)
[2022-04-27] MEDS ORDERED: Racepinephrine 2.25% 0.5 ML NEB ONE (11:10)
[2022-04-27] MEDS ORDERED: Sodium Bicarb 50 MEQ/50 ML VIAL ONE (11:11)
[2022-04-27] MEDS: Vancomycin 25 MG/ML Oral SOLN PO SCH ×3 (12:17→21:12)
[2022-04-27] MEDS ORDERED: Iopamidol-370 76% 500 ML 1 ML ONE (13:55)
[2022-04-27] MEDS ORDERED: Heparin 25,000 units/D5W 500 ML IVPB SCH (21:15)
[2022-04-27 21:26] LABS: Hemoglobin 13.9 g/dL (12.0-16.0); Platelet Count 209 thou/uL (130-400)
[2022-04-28] MEDS: Heparin 10,000 UNITS/ 10 ML VIAL SLOW IVP SCH ×2 (00:21→20:30)
[2022-04-28] MEDS: Vancomycin 1 GM in Premix Bag 1 BAG IVPB SCH ×2 (00:25→12:54)
[2022-04-28] MEDS: D5 1/2 NS w/20 mEq KCL 1,000 ML IV PRN ×3 (00:27→07:27)
[2022-04-28] MEDS: Morphine 4 MG/ML VIAL SLOW IVP PRN ×6 (01:29→21:35)
[2022-04-28] MEDS: Cefepime 2 GM in Sodium Chloride 0.9% 100 ML IVPB SCH ×2 (01:30→11:26)
[2022-04-28] MEDS: Labetalol HCl 100 MG/20 ML VIAL SLOW IVP PRN ×4 (02:56→18:03)
[2022-04-28] MEDS: Acetaminophen 500 MG TAB PO PRN ×2 (02:57→20:26)
[2022-04-28] MEDS: Vancomycin 25 MG/ML Oral SOLN PO SCH ×4 (03:00→21:35)
[2022-04-28 07:17] LABS: Anion Gap 14 mmol/L (10-20); BUN (Urea Nitrogen) 9 mg/dL (9.8-20.1); Calc. Creatinine Clearance 94 mL/min (70-130); Calcium 7.8 mg/dL (7.8-10.44); Carbon Dioxide 15 mmol/L (23-31); Chloride 108 mmol/L (98-107); Glucose 153 mg/dL (83-110); Potassium 4.5 mmol/L (3.5-5.1); Sodium 132 mmol/L (136-145)
[2022-04-28] MEDS: HUMULIN R 100 UNITS in Sodium Chloride 0.9% 100 ML IVPB SCH (07:27)
[2022-04-28 08:01] LABS: #Eosinphils 0.1 thou/uL (0.0-0.7); #Monocytes 0.3 thou/uL (0.11-0.59); #Neutrophils 11.9 thou/uL (1.40-6.50); %Basophils 0.1 % (0.0-1.0); %Eosinophils 0.5 % (0.0-10.0); %Monocytes 1.9 % (0.0-10.0); %Neutrophils 83.6 % (42.0-75.0); Hemoglobin 13.6 g/dL (12.0-16.0); Mean Corpuscular HGB CONC 31.6 g/dL (32.0-36.0); Mean Corpuscular Hemoglobin 30.3 pg (27.0-31.0); Mean Corpuscular Volume 95.7 fL (78.0-98.0); Mean Platelet Volume 8.2 fL (7.4-10.4); Platelet Count 189 thou/uL (130-400); RBC Distribution Width 13.9 % (11.5-14.5); White Blood Cell (WBC) Count 14.3 thou/uL (4.8-10.8)
[2022-04-28 08:13] LABS: Actual Bicarbonate (HCO3a) 17.9 mEq/L (22-28); Base Excess (BEa) -4.8 mEq/L (-2.0 to +3.0); CO2 Tension 27.1 mmHg (35.0-45.0); Calcium, Ionized (arterial) 1.12 mmol/L (1.12-1.30); Carboxyhemoglobin (COHb) 1.1 gm% (0.0-3.0); Hemoglobin (Hb) 13.3 g/dL (12.0-16.0); O2 Tension (PaO2), arterial 83.5 mmHg (> 70.0); Potassium - ABG Lab 3.97 mmol/L (3.70-5.30); pH, Arterial 7.44 (7.35-7.45)
[2022-04-28 08:16] LABS: ALV-art Gradient 32.355 mmHg (0-20); Puncture Site LRA
[2022-04-28] MEDS: Metoprolol Tartrate 25 MG TAB PO SCH ×2 (08:24→20:26)
[2022-04-28] MEDS ORDERED: Famotidine/PF 20 mg/2ml Vial SLOW IVP SCH (09:00)
[2022-04-28] MEDS: D5 1/2 NS w/20 mEq KCL 1,000 ML IV SCH ×3 (11:28→17:57)
[2022-04-28] MEDS ORDERED: Dextrose 50% Abboject 50 ML SYRINGE IVP PRN (11:30)
[2022-04-28] MEDS ORDERED: Dextrose 5% in Water 1,000 ML IV PRN (11:30)
[2022-04-28] MEDS: HumaLOG 300 UNITS/3 ML VIAL SC PRN ×2 (11:44→18:03)
[2022-04-28 12:17] LABS: Vancomycin, Trough 10.1 ug/mL
[2022-04-28 14:02] LABS: Bilirubin Negative (Negative); Blood, Urine Negative (Negative); Clarity Clear (Clear); Glucose, Urine (Dipstick) >=1000 mg/dL (Negative); Ketone, Urine Negative (Negative); Leukocyte Negative Leu/uL (Negative); Nitrite Negative (Negative); Protein, Urine (Dipstick) Negative (Neg-Trace); Specific Gravity, Urine 1.011 (1.002-1.036); Urobilinogen Normal mg/dL (Less than 2)
[2022-04-28] MEDS: Vancomycin 1.5 GRAM/300 ML BAG 1.5 GM in Premix Bag 1 BAG IVPB SCH (14:46)
[2022-04-28] MEDS: Enoxaparin Sodium 80 MG/0.8 ML SYRINGE SC SCH (20:25)
[2022-04-28] MEDS: Famotidine/PF 20 mg/2ml Vial SLOW IVP SCH (20:26)
[2022-04-29] MEDS: Cefepime 2 GM in Sodium Chloride 0.9% 100 ML IVPB SCH ×2 (00:26→12:17)
[2022-04-29] MEDS: D5 1/2 NS w/20 mEq KCL 1,000 ML IV SCH ×4 (00:26→23:27)
[2022-04-29] MEDS: HumaLOG 300 UNITS/3 ML VIAL SC PRN ×3 (00:34→18:19)
[2022-04-29] MEDS: Vancomycin 1.5 GRAM/300 ML BAG 1.5 GM in Premix Bag 1 BAG IVPB SCH ×2 (01:06→12:42)
[2022-04-29 04:26] LABS: ALT (SGPT) 16 U/L (8-55); AST (SGOT) 19 U/L (5-34); Albumin 2.3 g/dL (3.4-4.8); Alkaline Phosphatase 72 U/L (40-110); Anion Gap 11 mmol/L (10-20); BUN (Urea Nitrogen) 8 mg/dL (9.8-20.1); Bilirubin, Total 0.8 mg/dL (0.2-1.2); Calc. Creatinine Clearance 101 mL/min (70-130); Calcium 7.9 mg/dL (7.8-10.44); Carbon Dioxide 20 mmol/L (23-31); Chloride 104 mmol/L (98-107); Estimated GFR 92; Globulin 2.6 g/dL (2.4-3.5); Glucose 149 mg/dL (83-110); Hemoglobin 12.2 g/dL (12.0-16.0); Mean Corpuscular HGB CONC 33.3 g/dL (32.0-36.0); Mean Corpuscular Hemoglobin 31.7 pg (27.0-31.0); Mean Corpuscular Volume 95.4 fL (78.0-98.0); Mean Platelet Volume 8.8 fL (7.4-10.4); Platelet Count 165 thou/uL (130-400); Potassium 4.1 mmol/L (3.5-5.1); Protein, Total 4.9 g/dL (5.8-8.1); RBC Distribution Width 13.8 % (11.5-14.5); Red Blood Cell (RBC) Count 3.86 mill/uL (4.20-5.40); Sodium 131 mmol/L (136-145); White Blood Cell (WBC) Count 16.4 thou/uL (4.8-10.8)
[2022-04-29 04:27] LABS: Band 25 % (5-11); Lymphocytes 8 % (21-51); MDiff Complete? YES; Neutrophil 67 % (42-75); Platelet Morphology Comment Appears Adequate; RBC Morphology Normal
[2022-04-29] MEDS: Vancomycin 25 MG/ML Oral SOLN PO SCH ×4 (05:21→21:03)
[2022-04-29] MEDS: Famotidine/PF 20 mg/2ml Vial SLOW IVP SCH ×2 (09:24→20:52)
[2022-04-29] MEDS: Metoprolol Tartrate 25 MG TAB PO SCH (09:24)
[2022-04-29] MEDS: Morphine 4 MG/ML VIAL SLOW IVP PRN ×4 (09:25→20:52)
[2022-04-29] MEDS: Enoxaparin Sodium 80 MG/0.8 ML SYRINGE SC SCH ×2 (09:25→20:53)
[2022-04-29] MEDS: Ondansetron PF 4 MG/2 ML Vial IVP PRN (12:16)
[2022-04-29] MEDS: Labetalol HCl 100 MG/20 ML VIAL SLOW IVP PRN ×2 (15:51→20:55)
[2022-04-29] MEDS: Metoprolol Tartrate 50 MG TAB PO SCH (20:53)
[2022-04-29 22:45] LABS: Hemoglobin 11.5 g/dL (12.0-16.0); Platelet Count 197 thou/uL (130-400)
[2022-04-29] MEDS: Acetaminophen 500 MG TAB PO PRN (23:28)
[2022-04-30] MEDS: Cefepime 2 GM in Sodium Chloride 0.9% 100 ML IVPB SCH ×2 (00:39→13:14)
[2022-04-30] MEDS: Morphine 4 MG/ML VIAL SLOW IVP PRN ×4 (00:40→21:24)
[2022-04-30 01:12] LABS: Vancomycin, Trough 21.3 ug/mL
[2022-04-30] MEDS: Vancomycin 1.5 GRAM/300 ML BAG 1.5 GM in Premix Bag 1 BAG IVPB SCH ×2 (01:31→13:15)
[2022-04-30] MEDS: Vancomycin 25 MG/ML Oral SOLN PO SCH ×4 (03:35→22:31)
[2022-04-30] MEDS: HumaLOG 300 UNITS/3 ML VIAL SC PRN ×2 (06:10→17:14)
[2022-04-30] MEDS: Labetalol HCl 100 MG/20 ML VIAL SLOW IVP PRN ×2 (06:10→22:07)
[2022-04-30 07:13] LABS: #Basophils 0.1 thou/uL (0.0-0.2); #Eosinphils 0.7 thou/uL (0.0-0.7); #Lymphocytes 2.3 thou/uL (1.20-3.40); #Monocytes 0.5 thou/uL (0.11-0.59); #Neutrophils 7.5 thou/uL (1.40-6.50); %Basophils 0.9 % (0.0-1.0); %Eosinophils 6.5 % (0.0-10.0); %Lymphocytes 20.2 % (21.0-51.0); %Monocytes 4.6 % (0.0-10.0); %Neutrophils 67.7 % (42.0-75.0); Hemoglobin 11.9 g/dL (12.0-16.0); Mean Corpuscular HGB CONC 32.4 g/dL (32.0-36.0); Mean Corpuscular Hemoglobin 30.8 pg (27.0-31.0); Mean Corpuscular Volume 94.9 fL (78.0-98.0); Mean Platelet Volume 8.4 fL (7.4-10.4); Platelet Count 210 thou/uL (130-400); RBC Distribution Width 13.6 % (11.5-14.5); Red Blood Cell (RBC) Count 3.88 mill/uL (4.20-5.40); White Blood Cell (WBC) Count 11.1 thou/uL (4.8-10.8)
[2022-04-30 07:30] LABS: Anion Gap 12 mmol/L (10-20); BUN (Urea Nitrogen) 6 mg/dL (9.8-20.1); Calc. Creatinine Clearance 93 mL/min (70-130); Calcium 8.1 mg/dL (7.8-10.44); Carbon Dioxide 24 mmol/L (23-31); Chloride 102 mmol/L (98-107); Estimated GFR 87; Glucose 189 mg/dL (83-110); Potassium 3.6 mmol/L (3.5-5.1); Sodium 134 mmol/L (136-145)
[2022-04-30 08:17] LABS: Magnesium 1.5 mg/dL (1.6-2.6)
[2022-04-30] MEDS ORDERED: Magnesium 2 GM/50 ML(in water) 2 GM in Premix Bag 1 BAG IVPB SCH (09:00)
[2022-04-30] MEDS: D5 1/2 NS w/20 mEq KCL 1,000 ML IV SCH ×2 (10:12→17:14)
[2022-04-30] MEDS: Metoprolol Tartrate 50 MG TAB PO SCH ×2 (10:13→21:52)
[2022-04-30] MEDS: DULoxetine 30 MG CAP PO SCH (10:13)
[2022-04-30] MEDS: Famotidine/PF 20 mg/2ml Vial SLOW IVP SCH ×2 (10:13→21:52)
[2022-04-30] MEDS: Enoxaparin Sodium 80 MG/0.8 ML SYRINGE SC SCH (10:13)
[2022-04-30] MEDS: Ondansetron PF 4 MG/2 ML Vial IVP PRN (13:15)
[2022-04-30] MEDS: Apixaban 5 MG TAB PO SCH (21:52)
[2022-05-01] MEDS: Cefepime 2 GM in Sodium Chloride 0.9% 100 ML IVPB SCH ×2 (00:23→12:04)
[2022-05-01] MEDS: D5 1/2 NS w/20 mEq KCL 1,000 ML IV SCH ×2 (00:24→05:00)
[2022-05-01] MEDS: Morphine 4 MG/ML VIAL SLOW IVP PRN ×5 (02:34→21:26)
[2022-05-01 04:09] LABS: Anion Gap 12 mmol/L (10-20); BUN (Urea Nitrogen) 5 mg/dL (9.8-20.1); Calc. Creatinine Clearance 96 mL/min (70-130); Calcium 8.1 mg/dL (7.8-10.44); Carbon Dioxide 23 mmol/L (23-31); Chloride 99 mmol/L (98-107); Estimated GFR 90; Glucose 253 mg/dL (83-110); Potassium 3.7 mmol/L (3.5-5.1); Sodium 130 mmol/L (136-145)
[2022-05-01] MEDS: Vancomycin 25 MG/ML Oral SOLN PO SCH ×4 (04:40→21:28)
[2022-05-01] MEDS: Labetalol HCl 100 MG/20 ML VIAL SLOW IVP PRN ×2 (04:48→18:04)
[2022-05-01 08:45] LABS: Magnesium 1.6 mg/dL (1.6-2.6)
[2022-05-01] MEDS: DULoxetine 30 MG CAP PO SCH (09:19)
[2022-05-01] MEDS: Metoprolol Tartrate 50 MG TAB PO SCH ×2 (09:19→20:19)
[2022-05-01] MEDS: Apixaban 5 MG TAB PO SCH ×2 (09:19→20:19)
[2022-05-01] MEDS: Famotidine/PF 20 mg/2ml Vial SLOW IVP SCH ×2 (09:20→20:19)
[2022-05-01] MEDS ORDERED: Magnesium 2 GM/50 ML(in water) 2 GM in Premix Bag 1 BAG IVPB SCH (10:00)
[2022-05-01] MEDS: HumaLOG 300 UNITS/3 ML VIAL SC PRN ×3 (12:05→21:28)
[2022-05-01] MEDS: Nicotine 14 MG PATCH TD SCH (17:57)
[2022-05-01 20:54] LABS: Hemoglobin 11.7 g/dL (12.0-16.0); Platelet Count 283 thou/uL (130-400)
[2022-05-02] MEDS: Cefepime 2 GM in Sodium Chloride 0.9% 100 ML IVPB SCH (00:47)
[2022-05-02] MEDS: Morphine 4 MG/ML VIAL SLOW IVP PRN ×6 (00:47→20:21)
[2022-05-02] MEDS: Labetalol HCl 100 MG/20 ML VIAL SLOW IVP PRN ×2 (00:48→20:34)
[2022-05-02] MEDS: Vancomycin 25 MG/ML Oral SOLN PO SCH ×4 (05:14→21:56)
[2022-05-02] MEDS: HumaLOG 300 UNITS/3 ML VIAL SC PRN (05:26)
[2022-05-02 06:02] LABS: Anion Gap 14 mmol/L (10-20); BUN (Urea Nitrogen) 6 mg/dL (9.8-20.1); Calc. Creatinine Clearance 91 mL/min (70-130); Calcium 8.4 mg/dL (7.8-10.44); Carbon Dioxide 24 mmol/L (23-31); Chloride 97 mmol/L (98-107); Estimated GFR 85; Glucose 202 mg/dL (83-110); Potassium 3.7 mmol/L (3.5-5.1); Sodium 131 mmol/L (136-145)
[2022-05-02] MEDS: Famotidine/PF 20 mg/2ml Vial SLOW IVP SCH ×2 (08:26→20:20)
[2022-05-02] MEDS: Apixaban 5 MG TAB PO SCH ×2 (08:26→20:20)
[2022-05-02] MEDS: DULoxetine 30 MG CAP PO SCH (08:26)
[2022-05-02] MEDS: Metoprolol Tartrate 50 MG TAB PO SCH ×2 (08:26→20:20)
[2022-05-02] MEDS ORDERED: Dextrose 5% in Water 1,000 ML IV PRN (09:20)
[2022-05-02] MEDS ORDERED: Dextrose 50% Abboject 50 ML SYRINGE SLOW IVP PRN (09:20)
[2022-05-02] MEDS ORDERED: Lisinopril 20 MG TAB PO SCH (09:30)
[2022-05-02] MEDS ORDERED: Saccharomyces boulardii 250 MG CAP PO SCH (09:45)
[2022-05-02] MEDS: Insulin Regular 300 UNITS/3 ML VIAL SC PRN ×3 (12:38→20:32)
[2022-05-02] MEDS: Nicotine 14 MG PATCH TD SCH (17:57)
[2022-05-03] MEDS: Vancomycin 25 MG/ML Oral SOLN PO SCH ×4 (04:52→21:37)
[2022-05-03] MEDS: Morphine 4 MG/ML VIAL SLOW IVP PRN ×3 (04:53→21:41)
[2022-05-03] MEDS: Labetalol HCl 100 MG/20 ML VIAL SLOW IVP PRN ×2 (04:54→15:48)
[2022-05-03] MEDS: Insulin Regular 300 UNITS/3 ML VIAL SC PRN ×4 (04:55→21:38)
[2022-05-03 06:28] LABS: Anion Gap 13 mmol/L (10-20); BUN (Urea Nitrogen) 4 mg/dL (9.8-20.1); Calc. Creatinine Clearance 96 mL/min (70-130); Calcium 8.9 mg/dL (7.8-10.44); Carbon Dioxide 28 mmol/L (23-31); Chloride 97 mmol/L (98-107); Estimated GFR 90; Glucose 178 mg/dL (83-110); Potassium 3.5 mmol/L (3.5-5.1); Sodium 134 mmol/L (136-145)
[2022-05-03] MEDS ORDERED: Potassium Chloride 20 MEQ TAB PO SCH (08:00)
[2022-05-03] MEDS: Apixaban 5 MG TAB PO SCH (08:51)
[2022-05-03] MEDS: Famotidine/PF 20 mg/2ml Vial SLOW IVP SCH ×2 (08:51→21:36)
[2022-05-03] MEDS: Saccharomyces boulardii 250 MG CAP PO SCH (08:51)
[2022-05-03] MEDS: DULoxetine 30 MG CAP PO SCH (08:51)
[2022-05-03] MEDS: Lisinopril 20 MG TAB PO SCH (08:51)
[2022-05-03] MEDS: Metoprolol Tartrate 50 MG TAB PO SCH ×2 (08:52→21:36)
[2022-05-03] MEDS ORDERED: Amlodipine 10 MG TAB PO SCH (11:15)
[2022-05-03 15:50] LABS: #Basophils 0.1 thou/uL (0.0-0.2); #Eosinphils 0.7 thou/uL (0.0-0.7); #Lymphocytes 3.9 thou/uL (1.20-3.40); #Monocytes 1.2 thou/uL (0.11-0.59); #Neutrophils 8.6 thou/uL (1.40-6.50); %Basophils 0.5 % (0.0-1.0); %Eosinophils 4.7 % (0.0-10.0); %Lymphocytes 26.7 % (21.0-51.0); %Monocytes 8.5 % (0.0-10.0); %Neutrophils 59.5 % (42.0-75.0); Hemoglobin 11.3 g/dL (12.0-16.0); Mean Corpuscular HGB CONC 32.7 g/dL (32.0-36.0); Mean Corpuscular Hemoglobin 31.1 pg (27.0-31.0); Mean Corpuscular Volume 95.1 fL (78.0-98.0); Mean Platelet Volume 7.4 fL (7.4-10.4); Platelet Count 384 thou/uL (130-400); RBC Distribution Width 14.1 % (11.5-14.5); Red Blood Cell (RBC) Count 3.65 mill/uL (4.20-5.40); White Blood Cell (WBC) Count 14.5 thou/uL (4.8-10.8)
[2022-05-03] MEDS ORDERED: Morphine 4 MG/ML VIAL ONE (15:52)
[2022-05-03] MEDS: HYDROcodone/Acetaminophen 7.5/325 mg Tablet PO PRN (15:53)
[2022-05-03] MEDS: Nicotine 14 MG PATCH TD SCH (18:01)
[2022-05-03 21:24] LABS: Hemoglobin 10.9 g/dL (12.0-16.0); Platelet Count 385 thou/uL (130-400)
[2022-05-03] MEDS: Sodium Chloride 0.9% 1,000 ML IV SCH (21:42)
[2022-05-04] MEDS: Vancomycin 25 MG/ML Oral SOLN PO SCH ×4 (03:50→21:16)
[2022-05-04] MEDS: Labetalol HCl 100 MG/20 ML VIAL SLOW IVP PRN (03:58)
[2022-05-04] MEDS: Insulin Regular 300 UNITS/3 ML VIAL SC PRN ×3 (05:22→21:24)
[2022-05-04 05:44] LABS: Hemoglobin 10.8 g/dL (12.0-16.0); Mean Corpuscular HGB CONC 32.7 g/dL (32.0-36.0); Mean Corpuscular Hemoglobin 31.2 pg (27.0-31.0); Mean Corpuscular Volume 95.5 fL (78.0-98.0); Mean Platelet Volume 7.2 fL (7.4-10.4); Platelet Count 387 thou/uL (130-400); Red Blood Cell (RBC) Count 3.46 mill/uL (4.20-5.40); White Blood Cell (WBC) Count 16.2 thou/uL (4.8-10.8)
[2022-05-04] MEDS: HYDROcodone/Acetaminophen 7.5/325 mg Tablet PO PRN ×3 (05:54→18:43)
[2022-05-04 06:02] LABS: Anion Gap 12 mmol/L (10-20); BUN (Urea Nitrogen) 7 mg/dL (9.8-20.1); Calc. Creatinine Clearance 97 mL/min (70-130); Calcium 8.3 mg/dL (7.8-10.44); Carbon Dioxide 24 mmol/L (23-31); Chloride 100 mmol/L (98-107); Estimated GFR 92; Glucose 187 mg/dL (83-110); Potassium 3.8 mmol/L (3.5-5.1); Sodium 132 mmol/L (136-145)
[2022-05-04 06:09] LABS: Band 11 % (5-11); Eosinophils 5 % (0-10); Lymphocytes 19 % (21-51); MDiff Complete? YES; Monocytes 3 % (0-10); Myelocyte 1 % (0-0); Neutrophil 61 % (42-75); Nucleated RBC 1 % (0)
[2022-05-04] MEDS: Amlodipine 10 MG TAB PO SCH (09:41)
[2022-05-04] MEDS: Metoprolol Tartrate 50 MG TAB PO SCH ×2 (09:47→21:17)
[2022-05-04] MEDS: Saccharomyces boulardii 250 MG CAP PO SCH (09:47)
[2022-05-04] MEDS: Famotidine/PF 20 mg/2ml Vial SLOW IVP SCH ×2 (09:48→21:15)
[2022-05-04] MEDS: Lisinopril 20 MG TAB PO SCH (09:48)
[2022-05-04] MEDS: DULoxetine 30 MG CAP PO SCH (09:48)
[2022-05-04] MEDS ORDERED: cloNIDine 0.1 MG TAB PO SCH ×2 (11:15→11:30)
[2022-05-04] MEDS: Nicotine 14 MG PATCH TD SCH (17:54)
[2022-05-04] MEDS: cloNIDine 0.1 MG TAB PO SCH (21:15)
[2022-05-04] MEDS: Insulin Glargine 30 UNITS/0.3 ML VIAL SC SCH (21:17)
[2022-05-04] MEDS: Morphine 4 MG/ML VIAL SLOW IVP PRN (21:18)
[2022-05-05] MEDS: HYDROcodone/Acetaminophen 7.5/325 mg Tablet PO PRN ×3 (00:34→16:57)
[2022-05-05] MEDS: Vancomycin 25 MG/ML Oral SOLN PO SCH ×4 (04:50→21:48)
[2022-05-05] MEDS: Sodium Chloride 0.9% 1,000 ML IV SCH (04:52)
[2022-05-05 06:10] LABS: Anion Gap 13 mmol/L (10-20); BUN (Urea Nitrogen) 7 mg/dL (9.8-20.1); Calc. Creatinine Clearance 90 mL/min (70-130); Calcium 8.4 mg/dL (7.8-10.44); Carbon Dioxide 22 mmol/L (23-31); Chloride 101 mmol/L (98-107); Estimated GFR 87; Glucose 150 mg/dL (83-110); Potassium 4.1 mmol/L (3.5-5.1); Sodium 132 mmol/L (136-145)
[2022-05-05] MEDS: metroNIDAZOLE 500 MG TAB PO SCH ×3 (10:04→21:49)
[2022-05-05] MEDS: Lisinopril 20 MG TAB PO SCH (10:05)
[2022-05-05] MEDS: Saccharomyces boulardii 250 MG CAP PO SCH (10:05)
[2022-05-05] MEDS: Metoprolol Tartrate 50 MG TAB PO SCH ×2 (10:05→21:49)
[2022-05-05] MEDS: cloNIDine 0.1 MG TAB PO SCH ×2 (10:06→21:50)
[2022-05-05] MEDS: Amlodipine 10 MG TAB PO SCH (10:06)
[2022-05-05] MEDS: DULoxetine 30 MG CAP PO SCH (10:07)
[2022-05-05] MEDS: Famotidine/PF 20 mg/2ml Vial SLOW IVP SCH ×2 (10:07→21:49)
[2022-05-05] MEDS: Insulin Regular 300 UNITS/3 ML VIAL SC PRN ×3 (12:27→21:49)
[2022-05-05] MEDS: Nicotine 14 MG PATCH TD SCH (18:51)
[2022-05-05] MEDS: Morphine 4 MG/ML VIAL SLOW IVP PRN (21:48)
[2022-05-05] MEDS: Insulin Glargine 30 UNITS/0.3 ML VIAL SC SCH (21:48)
[2022-05-05] MEDS: Ciprofloxacin 500 MG TAB PO SCH (21:49)
[2022-05-06] MEDS: Acetaminophen 500 MG TAB PO PRN (00:50)
[2022-05-06] MEDS: Vancomycin 25 MG/ML Oral SOLN PO SCH ×2 (04:43→10:55)
[2022-05-06] MEDS: HYDROcodone/Acetaminophen 7.5/325 mg Tablet PO PRN ×2 (04:43→08:51)
[2022-05-06 06:12] LABS: #Basophils 0.1 thou/uL (0.0-0.2); #Eosinphils 0.5 thou/uL (0.0-0.7); #Lymphocytes 2.1 thou/uL (1.20-3.40); #Neutrophils 6.8 thou/uL (1.40-6.50); %Eosinophils 5.1 % (0.0-10.0); %Lymphocytes 20.2 % (21.0-51.0); %Monocytes 9.1 % (0.0-10.0); %Neutrophils 64.6 % (42.0-75.0); Hemoglobin 10.2 g/dL (12.0-16.0); Mean Corpuscular HGB CONC 32.4 g/dL (32.0-36.0); Mean Corpuscular Hemoglobin 31.1 pg (27.0-31.0); Mean Corpuscular Volume 96.1 fL (78.0-98.0); Mean Platelet Volume 6.7 fL (7.4-10.4); Platelet Count 451 thou/uL (130-400); RBC Distribution Width 14.3 % (11.5-14.5); Red Blood Cell (RBC) Count 3.28 mill/uL (4.20-5.40); White Blood Cell (WBC) Count 10.6 thou/uL (4.8-10.8)
[2022-05-06] MEDS: Insulin Regular 300 UNITS/3 ML VIAL SC PRN (06:30)
[2022-05-06] MEDS: Ciprofloxacin 500 MG TAB PO SCH (06:30)
[2022-05-06 06:31] LABS: Anion Gap 10 mmol/L (10-20); BUN (Urea Nitrogen) 6 mg/dL (9.8-20.1); Calc. Creatinine Clearance 86 mL/min (70-130); Calcium 8.4 mg/dL (7.8-10.44); Carbon Dioxide 27 mmol/L (23-31); Chloride 100 mmol/L (98-107); Estimated GFR 83; Glucose 177 mg/dL (83-110); Potassium 3.9 mmol/L (3.5-5.1); Sodium 133 mmol/L (136-145)
[2022-05-06] MEDS: cloNIDine 0.1 MG TAB PO SCH (08:50)
[2022-05-06] MEDS: Famotidine/PF 20 mg/2ml Vial SLOW IVP SCH (08:51)
[2022-05-06] MEDS: Lisinopril 20 MG TAB PO SCH (08:51)
[2022-05-06] MEDS: Amlodipine 10 MG TAB PO SCH (08:51)
[2022-05-06] MEDS: Saccharomyces boulardii 250 MG CAP PO SCH (08:51)
[2022-05-06] MEDS: DULoxetine 30 MG CAP PO SCH (08:51)
[2022-05-06] MEDS: Metoprolol Tartrate 50 MG TAB PO SCH (08:51)
[2022-05-06] MEDS: metroNIDAZOLE 500 MG TAB PO SCH (08:51)
[2022-05-06] MEDS: Morphine 4 MG/ML VIAL SLOW IVP PRN ×2 (09:23→13:56)
[2022-05-06 11:41] VITALS: BP 136/66; TEMP 98.8
== END 2022-05-06 14:58 | disposition home or self-care (01) | DRG 871 ==
LOC: ERS 10:28 → ERHOLD 12:11 → IMCU/EMU 14:33 → SURG A 05-01 20:56
PROVIDERS: ADMIT Internal Medicine; ATTEND Internal Medicine
DX: A41.9 Sepsis, unspecified organism (principal); E11.10 Type 2 diabetes mellitus with ketoacidosis without coma; K55.039 Acute (reversible) ischemia of large intestine, extent unspecified; N17.9 Acute kidney failure, unspecified; I50.32 Chronic diastolic (congestive) heart failure; E87.2 Acidosis; D68.9 Coagulation defect, unspecified; A04.72 Enterocolitis due to Clostridium difficile, not specified as recurrent; I13.0 Hypertensive heart and chronic kidney disease with heart failure and stage 1 through stage 4 chronic kidney disease, or unspecified chronic kidney disease; E87.1 Hypo-osmolality and hyponatremia; N39.0 Urinary tract infection, site not specified; Z20.822 Contact with and (suspected) exposure to COVID-19; R65.20 Severe sepsis without septic shock; M79.7 Fibromyalgia; J44.9 Chronic obstructive pulmonary disease, unspecified; E78.5 Hyperlipidemia, unspecified; E66.9 Obesity, unspecified; M54.9 Dorsalgia, unspecified; F17.210 Nicotine dependence, cigarettes, uncomplicated; N18.30 Chronic kidney disease, stage 3 unspecified; E86.0 Dehydration; E83.42 Hypomagnesemia; E87.6 Hypokalemia; Z90.49 Acquired absence of other specified parts of digestive tract; Z90.710 Acquired absence of both cervix and uterus; Z88.8 Allergy status to other drugs, medicaments and biological substances; Z98.890 Other specified postprocedural states; Z79.84 Long term (current) use of oral hypoglycemic drugs; Z79.899 Other long term (current) drug therapy; Z68.33 Body mass index [BMI] 33.0-33.9, adult
CPT/HCPCS: 36415; 36416; 36600; 51701; 71045; 74174; 74176; 80048; 80053; 80202; 81003; 82010; 82553; 82805; 83036; 83605; 83690; 83735; 83880; 84100; 84443; 84484; 85014; 85018; 85025; 85027; 85049; 85610; 85730; 87040; 87086; 87149; 87324; 87449; 87804; 93005; 93010; 96361; 96365; 96366; 96367; C9113; J0692; J0696; J1644; J1650; J1815; J2270; J2405; J3370; J3475; J3480; J3490; J7050; Q0162; Q9967; S0028; U0002; U0003; U0005

== ENCOUNTER 2022-05-30 16:56 | Emergency (ER) | payer MEDICARE ==
[2022-05-30] MEDS ORDERED: Morphine 4 MG/ML VIAL ONE (17:35)
[2022-05-30 17:46] LABS: Hemoglobin 10.8 g/dL (12.0-16.0); Mean Corpuscular HGB CONC 32.5 g/dL (32.0-36.0); Mean Corpuscular Hemoglobin 30.7 pg (27.0-31.0); Mean Corpuscular Volume 94.5 fL (78.0-98.0); Mean Platelet Volume 6.6 fL (7.4-10.4); Platelet Count 434 thou/uL (130-400); RBC Distribution Width 13.7 % (11.5-14.5); Red Blood Cell (RBC) Count 3.53 mill/uL (4.20-5.40)
[2022-05-30 18:00] LABS: ALT (SGPT) Less than 7 U/L (8-55); AST (SGOT) 9 U/L (5-34); Albumin 3.1 g/dL (3.4-4.8); Alkaline Phosphatase 72 U/L (40-110); Anion Gap 12 mmol/L (10-20); BUN (Urea Nitrogen) 4 mg/dL (9.8-20.1); Bilirubin, Total 0.3 mg/dL (0.2-1.2); Calc. Creatinine Clearance 0 mL/min (70-130); Calcium 8.7 mg/dL (7.8-10.44); Carbon Dioxide 27 mmol/L (23-31); Chloride 102 mmol/L (98-107); Estimated GFR 83; Globulin 3.5 g/dL (2.4-3.5); Glucose 116 mg/dL (83-110); Lipase 8 U/L (8-78); Potassium 3.7 mmol/L (3.5-5.1); Protein, Total 6.6 g/dL (5.8-8.1); Sodium 137 mmol/L (136-145)
[2022-05-30 18:07] LABS: Band 2 % (5-11); Eosinophils 4 % (0-10); Lymphocytes 53 % (21-51); MDiff Complete? YES; Monocytes 8 % (0-10); Neutrophil 30 % (42-75); Platelet Morphology Comment Appears Increased; Reactive Lymphocytes 2 % (0-10)
[2022-05-30 18:21] LABS: CKMB 1.1 ng/mL (0-6.6)
[2022-05-30 19:34] LABS: Bilirubin Negative (Negative); Blood, Urine Negative (Negative); Clarity Clear (Clear); Glucose, Urine (Dipstick) 70 mg/dL (Negative); Ketone, Urine Negative (Negative); Leukocyte Negative Leu/uL (Negative); Nitrite Negative (Negative); Protein, Urine (Dipstick) Negative (Neg-Trace); Specific Gravity, Urine 1.004 (1.002-1.036); Urobilinogen Normal mg/dL (Less than 2)
== END 2022-05-30 21:56 | disposition home or self-care (01) ==
LOC: ERS 16:56
DX: A04.72 Enterocolitis due to Clostridium difficile, not specified as recurrent (principal); L03.115 Cellulitis of right lower limb; I11.0 Hypertensive heart disease with heart failure; I50.9 Heart failure, unspecified; E11.9 Type 2 diabetes mellitus without complications; M79.7 Fibromyalgia; D50.9 Iron deficiency anemia, unspecified; F17.210 Nicotine dependence, cigarettes, uncomplicated; Z79.84 Long term (current) use of oral hypoglycemic drugs; Z79.899 Other long term (current) drug therapy
CPT/HCPCS: 36415; 36416; 74177; 80053; 81003; 82553; 83690; 84484; 85025; 87324; 87449; 93005; 96374; J2270; Q9967

== ENCOUNTER 2023-09-09 14:45 | Outpatient (CLI) | payer MEDICARE | END 2023-09-09 14:46 | disposition home or self-care (01) | LOC: BICRAD 14:45 | PROVIDERS: ATTEND Internal Medicine Critical Care Medicine | DX: R06.00 Dyspnea, unspecified (principal); J98.4 Other disorders of lung; I70.0 Atherosclerosis of aorta | CPT/HCPCS: 71046 ==

== ENCOUNTER 2025-06-26 16:33 | Inpatient (IN) | payer MEDICARE ==
[2025-06-26] MEDS ORDERED: Droperidol 5 MG/2 ML VIAL ONE ×2 (18:14→19:43)
[2025-06-26 20:56] LABS: #Basophils 0.04 10x3/uL (0.0-0.2); #Eosinophils 0.26 10x3/uL (0.0-0.7); #Monocytes 0.58 10x3/uL (0.11-0.59); #Neutrophils 5.60 10x3/uL (1.40-6.50); %Basophils 0.4 % (0.0-1.0); %Eosinophils 2.6 % (0.0-10.0); %Lymphocytes 35.6 % (21.0-51.0); %Monocytes 5.7 % (0.0-10.0); %Neutrophils 55.3 % (42.0-75.0); Hematocrit 28.2 % (36.0-47.0); Hemoglobin 8.7 g/dL (12.0-16.0); Mean Corpuscular Hemoglobin 24.4 pg (27.0-31.0); Mean Corpuscular Volume 79.2 fL (78.0-98.0); Platelet Count 344 10x3/uL (130-400); Red Blood Cell (RBC) Count 3.56 mill/uL (4.20-5.40); White Blood Cell (WBC) Count 10.13 10x3/uL (4.8-10.8)
[2025-06-26 21:07] LABS: ALT (SGPT) 15 U/L (Less than 34); AST (SGOT) 24 U/L (11-34); Albumin 3.5 g/dL (3.1-4.5); Alkaline Phosphatase 66 U/L (40-110); Anion Gap 12 mmol/L (10-20); BUN (Urea Nitrogen) 14 mg/dL (9.8-20.1); Bilirubin, Total 0.3 mg/dL (0.3-1.2); Calc. Creatinine Clearance 0 mL/min (70-130); Calcium 9.1 mg/dL (7.8-10.44); Carbon Dioxide 22 mmol/L (23-31); Chloride 104 mmol/L (98-107); Globulin 4.6 g/dL (2.4-3.5); Glucose 98 mg/dL (83-110); Potassium 4.0 mmol/L (3.5-5.1); Sodium 134 mmol/L (136-145)
[2025-06-26 21:59] LABS: INR-International Normal Ratio 1.2; PTT 32.5 sec (22.9-36.1); Prothrombin Time 15.6 sec (12.0-14.7)
[2025-06-27] MEDS ORDERED: hydrALAZINE 20 MG/ML VIAL SLOW IVP PRN (00:31)
[2025-06-27 01:59] VITALS: BMI 32.3
[2025-06-27 07:09] LABS: #Basophils 0.03 10x3/uL (0.0-0.2); #Eosinophils 0.05 10x3/uL (0.0-0.7); #Monocytes 0.55 10x3/uL (0.11-0.59); #Neutrophils 4.55 10x3/uL (1.40-6.50); %Basophils 0.4 % (0.0-1.0); %Eosinophils 0.7 % (0.0-10.0); %Lymphocytes 28.7 % (21.0-51.0); %Monocytes 7.5 % (0.0-10.0); %Neutrophils 62.4 % (42.0-75.0); Hematocrit 29.7 % (36.0-47.0); Hemoglobin 9.1 g/dL (12.0-16.0); Mean Corpuscular Hemoglobin 24.4 pg (27.0-31.0); Mean Corpuscular Volume 79.6 fL (78.0-98.0); Platelet Count 279 10x3/uL (130-400); Red Blood Cell (RBC) Count 3.73 mill/uL (4.20-5.40); White Blood Cell (WBC) Count 7.29 10x3/uL (4.8-10.8)
[2025-06-27 07:30] LABS: Anion Gap 11 mmol/L (10-20); BUN (Urea Nitrogen) 10 mg/dL (9.8-20.1); Calc. Creatinine Clearance 92 mL/min (70-130); Calcium 8.8 mg/dL (7.8-10.44); Carbon Dioxide 22 mmol/L (23-31); Chloride 102 mmol/L (98-107); Glucose 141 mg/dL (83-110); Potassium 3.9 mmol/L (3.5-5.1); Sodium 131 mmol/L (136-145)
[2025-06-27] MEDS ORDERED: Methocarbamol 500 MG TAB PO SCH (09:00)
[2025-06-27] MEDS ORDERED: CEFAZOLIN 2 GM VIAL ONE (11:22)
[2025-06-27] MEDS ORDERED: fentaNYL PF 100 MCG/2 ML SYRINGE ONE ×2 (13:18→15:10)
[2025-06-27] MEDS ORDERED: PROPOFOL 20 ML ONE (13:19)
[2025-06-27] MEDS ORDERED: PHENYLEPHRINE-NS 100 MCG/ML 10 ML SYRINGE ONE (13:44)
[2025-06-27] MEDS ORDERED: Ondansetron PF 4 MG/2 ML Vial ONE (13:52)
[2025-06-27] MEDS ORDERED: diphenhydrAMINE 50 MG/ML VIAL ONE (13:52)
[2025-06-27] MEDS ORDERED: HYDROmorphone 0.5 MG/0.5 ML SYRINGE ONE ×3 (14:37→15:09)
[2025-06-27] MEDS: Senokot S 8.6-50 MG TAB PO SCH (20:39)
[2025-06-28] MEDS: Acetaminophen 325 MG TAB PO PRN (03:35)
[2025-06-28] MEDS ORDERED: Dextrose 50% Abboject 50 ML SYRINGE SLOW IVP PRN (07:30)
[2025-06-28] MEDS ORDERED: Glucagon 1 MG/ML KIT IM PRN (07:30)
[2025-06-28] MEDS: Enoxaparin 40 MG (0.4 mL) SYRINGE SC SCH (07:44)
[2025-06-28 09:14] LABS: Anion Gap 10 mmol/L (10-20); BUN (Urea Nitrogen) 11 mg/dL (9.8-20.1); Calc. Creatinine Clearance 77 mL/min (70-130); Carbon Dioxide 22 mmol/L (23-31); Chloride 104 mmol/L (98-107); Potassium 4.2 mmol/L (3.5-5.1); Sodium 132 mmol/L (136-145)
[2025-06-28 09:15] LABS: Calcium 8.3 mg/dL (7.8-10.44); Glucose 119 mg/dL (83-110)
[2025-06-28 09:21] LABS: #Basophils 0.03 10x3/uL (0.0-0.2); #Eosinophils 0.07 10x3/uL (0.0-0.7); #Monocytes 0.66 10x3/uL (0.11-0.59); #Neutrophils 5.79 10x3/uL (1.40-6.50); %Basophils 0.3 % (0.0-1.0); %Eosinophils 0.8 % (0.0-10.0); %Lymphocytes 25.2 % (21.0-51.0); %Monocytes 7.5 % (0.0-10.0); %Neutrophils 65.6 % (42.0-75.0); Hematocrit 25.4 % (36.0-47.0); Hemoglobin 7.7 g/dL (12.0-16.0); Mean Corpuscular Hemoglobin 24.7 pg (27.0-31.0); Mean Corpuscular Volume 81.4 fL (78.0-98.0); Platelet Count 264 10x3/uL (130-400); Red Blood Cell (RBC) Count 3.12 mill/uL (4.20-5.40); White Blood Cell (WBC) Count 8.82 10x3/uL (4.8-10.8)
[2025-06-28] MEDS: Acetaminophen 325 MG TAB PO SCH (10:02)
[2025-06-28] MEDS: oxyCODONE/Acetaminophen 5 mg/325 mg Tablet PO SCH (10:02)
[2025-06-28] MEDS: Cyclobenzaprine 10 MG TAB PO PRN (10:42)
[2025-06-28] MEDS ORDERED: Iopamidol-370 76% 500 ML MDV (1 ML CHARGE) ONE (13:31)
[2025-06-28] MEDS ORDERED: [UNRECOGNIZED DRUG - OTHER] PO SCH (15:00)
[2025-06-28] MEDS ORDERED: ACETAMINOPHEN PO SCH (15:00)
[2025-06-28] MEDS ORDERED: OXYCODONE HCL PO SCH (15:00)
[2025-06-28] MEDS: Ondansetron PF 4 MG/2 ML Vial IVP PRN (17:42)
[2025-06-28 21:07] LABS: Hematocrit 25.7 % (36.0-47.0); Hemoglobin 8.1 g/dL (12.0-16.0)
[2025-06-29] MEDS: Pantoprazole 40 MG DR.TAB PO SCH ×2 (01:12→08:48)
[2025-06-29] MEDS: Lidocaine 2% Viscous Solution 10 ML, Aluminum & Magnesium Hydroxide 30 ML SSW SCH (03:06)
[2025-06-29] MEDS ORDERED: Guaifenesin DM 100-10/5 ML UDCUP PO PRN (03:40)
[2025-06-29 04:32] LABS: #Basophils Less than 0.03 10x3/uL (0.0-0.2); #Eosinophils Less than 0.03 10x3/uL (0.0-0.7); #Monocytes 0.80 10x3/uL (0.11-0.59); #Neutrophils 7.75 10x3/uL (1.40-6.50); %Basophils 0.2 % (0.0-1.0); %Eosinophils 0.1 % (0.0-10.0); %Lymphocytes 17.8 % (21.0-51.0); %Monocytes 7.6 % (0.0-10.0); %Neutrophils 73.6 % (42.0-75.0); Hematocrit 24.4 % (36.0-47.0); Hemoglobin 7.6 g/dL (12.0-16.0); Mean Corpuscular Hemoglobin 25.0 pg (27.0-31.0); Mean Corpuscular Volume 80.3 fL (78.0-98.0); Platelet Count 259 10x3/uL (130-400); Red Blood Cell (RBC) Count 3.04 mill/uL (4.20-5.40); White Blood Cell (WBC) Count 10.52 10x3/uL (4.8-10.8)
[2025-06-29 05:08] LABS: Anion Gap 13 mmol/L (10-20); BUN (Urea Nitrogen) 13 mg/dL (9.8-20.1); Calc. Creatinine Clearance 83 mL/min (70-130); Calcium 8.7 mg/dL (7.8-10.44); Carbon Dioxide 24 mmol/L (23-31); Chloride 96 mmol/L (98-107); Glucose 208 mg/dL (83-110); Potassium 3.7 mmol/L (3.5-5.1); Sodium 129 mmol/L (136-145)
[2025-06-29] MEDS: Calcium Carbonate 500 MG ChewTAB PO PRN (05:38)
[2025-06-29] MEDS: Heparin 5,000 UNITS/ML VIAL SC SCH (08:49)
[2025-06-29] MEDS: Metoprolol Succinate XL 50 MG ER.TAB PO SCH (21:00)
[2025-06-29] MEDS: Insulin Glargine 30 UNITS/0.3 ML VIAL SC SCH (21:00)
[2025-06-30 04:59] LABS: Hematocrit 22.5 % (36.0-47.0); Hemoglobin 6.9 g/dL (12.0-16.0); Mean Corpuscular Hemoglobin 25.0 pg (27.0-31.0); Mean Corpuscular Volume 81.5 fL (78.0-98.0); Platelet Count 235 10x3/uL (130-400); Red Blood Cell (RBC) Count 2.76 mill/uL (4.20-5.40); White Blood Cell (WBC) Count 10.51 10x3/uL (4.8-10.8)
[2025-06-30 05:05] LABS: Anion Gap 13 mmol/L (10-20); BUN (Urea Nitrogen) 22 mg/dL (9.8-20.1); Calc. Creatinine Clearance 57 mL/min (70-130); Calcium 8.8 mg/dL (7.8-10.44); Carbon Dioxide 26 mmol/L (23-31); Chloride 99 mmol/L (98-107); Glucose 98 mg/dL (83-110); Potassium 3.7 mmol/L (3.5-5.1); Sodium 134 mmol/L (136-145)
[2025-06-30 05:58] LABS: Platelet Adequacy Comment Platelets Normal; Smudge Cells 10.1 %
[2025-07-01 08:05] LABS: #Basophils Less than 0.03 10x3/uL (0.0-0.2); #Eosinophils 0.29 10x3/uL (0.0-0.7); #Monocytes 0.43 10x3/uL (0.11-0.59); #Neutrophils 3.07 10x3/uL (1.40-6.50); %Basophils 0.3 % (0.0-1.0); %Eosinophils 4.6 % (0.0-10.0); %Lymphocytes 38.8 % (21.0-51.0); %Monocytes 6.8 % (0.0-10.0); %Neutrophils 48.4 % (42.0-75.0); Hematocrit 26.0 % (36.0-47.0); Hemoglobin 8.1 g/dL (12.0-16.0); Mean Corpuscular Hemoglobin 25.9 pg (27.0-31.0); Mean Corpuscular Volume 83.1 fL (78.0-98.0); Platelet Count 239 10x3/uL (130-400); Red Blood Cell (RBC) Count 3.13 mill/uL (4.20-5.40); White Blood Cell (WBC) Count 6.34 10x3/uL (4.8-10.8)
[2025-07-01 08:20] LABS: Anion Gap 13 mmol/L (10-20); BUN (Urea Nitrogen) 16 mg/dL (9.8-20.1); Calc. Creatinine Clearance 68 mL/min (70-130); Calcium 8.2 mg/dL (7.8-10.44); Carbon Dioxide 25 mmol/L (23-31); Chloride 97 mmol/L (98-107); Glucose 99 mg/dL (83-110); Potassium 3.5 mmol/L (3.5-5.1); Sodium 131 mmol/L (136-145)
[2025-07-01] MEDS: oxyCODONE/Acetaminophen 5 mg/325 mg Tablet PO SCH (09:06)
[2025-07-01] MEDS ORDERED: TRAMADOL HCL 300 MG PO SCH ×2 (21:00)
[2025-07-02 06:38] LABS: #Basophils Less than 0.03 10x3/uL (0.0-0.2); #Eosinophils 0.17 10x3/uL (0.0-0.7); #Monocytes 0.44 10x3/uL (0.11-0.59); #Neutrophils 1.75 10x3/uL (1.40-6.50); %Basophils 0.4 % (0.0-1.0); %Eosinophils 3.4 % (0.0-10.0); %Lymphocytes 50.2 % (21.0-51.0); %Monocytes 8.8 % (0.0-10.0); %Neutrophils 34.8 % (42.0-75.0); Hematocrit 24.3 % (36.0-47.0); Hemoglobin 7.7 g/dL (12.0-16.0); Mean Corpuscular Hemoglobin 26.2 pg (27.0-31.0); Mean Corpuscular Volume 82.7 fL (78.0-98.0); Platelet Count 233 10x3/uL (130-400); Red Blood Cell (RBC) Count 2.94 mill/uL (4.20-5.40); White Blood Cell (WBC) Count 5.02 10x3/uL (4.8-10.8)
[2025-07-02 06:51] LABS: Iron 32 ug/dL (50-170); Iron Binding Capacity, Total 304 mcg/dL (265-497)
[2025-07-02 06:52] LABS: ALT (SGPT) 7 U/L (Less than 34); AST (SGOT) 20 U/L (11-34); Albumin 2.4 g/dL (3.1-4.5); Alkaline Phosphatase 50 U/L (40-110); Anion Gap 7 mmol/L (10-20); BUN (Urea Nitrogen) 18 mg/dL (9.8-20.1); Bilirubin, Total 0.4 mg/dL (0.3-1.2); Calc. Creatinine Clearance 54 mL/min (70-130); Calcium 8.1 mg/dL (7.8-10.44); Carbon Dioxide 29 mmol/L (23-31); Chloride 100 mmol/L (98-107); Globulin 3.8 g/dL (2.4-3.5); Glucose 84 mg/dL (83-110); Iron 30 ug/dL (50-170); Iron Binding Capacity, Total 294 mcg/dL (265-497); Magnesium 2.0 mg/dL (1.6-2.6); Potassium 3.5 mmol/L (3.5-5.1); Sodium 132 mmol/L (136-145)
[2025-07-02 07:13] LABS: Ferritin 47.9 ng/mL (10-291); Thyroid Stimulating Hormone 5.2194 uIU/mL (0.35-4.94)
[2025-07-02] MEDS: Multivitamin W/ Minerals 1 TAB PO SCH (17:46)
[2025-07-03 06:02] LABS: #Basophils Less than 0.03 10x3/uL (0.0-0.2); #Eosinophils 0.20 10x3/uL (0.0-0.7); #Monocytes 0.45 10x3/uL (0.11-0.59); #Neutrophils 1.59 10x3/uL (1.40-6.50); %Basophils 0.2 % (0.0-1.0); %Eosinophils 4.9 % (0.0-10.0); %Lymphocytes 42.5 % (21.0-51.0); %Monocytes 11.1 % (0.0-10.0); %Neutrophils 39.3 % (42.0-75.0); Hematocrit 22.9 % (36.0-47.0); Hemoglobin 7.0 g/dL (12.0-16.0); Mean Corpuscular Hemoglobin 25.9 pg (27.0-31.0); Mean Corpuscular Volume 84.8 fL (78.0-98.0); Platelet Count 240 10x3/uL (130-400); Red Blood Cell (RBC) Count 2.70 mill/uL (4.20-5.40); White Blood Cell (WBC) Count 4.05 10x3/uL (4.8-10.8)
[2025-07-03 06:29] LABS: Anion Gap 10 mmol/L (10-20); BUN (Urea Nitrogen) 13 mg/dL (9.8-20.1); Calc. Creatinine Clearance 62 mL/min (70-130); Calcium 8.1 mg/dL (7.8-10.44); Carbon Dioxide 28 mmol/L (23-31); Chloride 99 mmol/L (98-107); Glucose 130 mg/dL (83-110); Potassium 3.9 mmol/L (3.5-5.1); Sodium 133 mmol/L (136-145)
[2025-07-03] MEDS: Multivitamin W/ Minerals 1 TAB PO SCH (08:38)
[2025-07-03] MEDS: Heparin 5,000 UNITS/ML VIAL SC SCH (21:27)
[2025-07-04 06:03] LABS: #Basophils Less than 0.03 10x3/uL (0.0-0.2); #Eosinophils 0.23 10x3/uL (0.0-0.7); #Monocytes 0.53 10x3/uL (0.11-0.59); #Neutrophils 2.21 10x3/uL (1.40-6.50); %Basophils 0.4 % (0.0-1.0); %Eosinophils 4.4 % (0.0-10.0); %Lymphocytes 41.3 % (21.0-51.0); %Monocytes 10.2 % (0.0-10.0); %Neutrophils 42.4 % (42.0-75.0); Hematocrit 28.8 % (36.0-47.0); Hemoglobin 9.1 g/dL (12.0-16.0); Mean Corpuscular Hemoglobin 26.8 pg (27.0-31.0); Mean Corpuscular Volume 85.0 fL (78.0-98.0); Platelet Count 225 10x3/uL (130-400); Red Blood Cell (RBC) Count 3.39 mill/uL (4.20-5.40); White Blood Cell (WBC) Count 5.21 10x3/uL (4.8-10.8)
[2025-07-04 06:19] LABS: ALT (SGPT) 9 U/L (Less than 34); AST (SGOT) 72 U/L (11-34); Albumin 2.4 g/dL (3.1-4.5); Alkaline Phosphatase 64 U/L (40-110); Anion Gap 11 mmol/L (10-20); BUN (Urea Nitrogen) 8 mg/dL (9.8-20.1); Bilirubin, Total 0.5 mg/dL (0.3-1.2); Calc. Creatinine Clearance 66 mL/min (70-130); Calcium 8.4 mg/dL (7.8-10.44); Carbon Dioxide 26 mmol/L (23-31); Chloride 103 mmol/L (98-107); Globulin 3.8 g/dL (2.4-3.5); Glucose 137 mg/dL (83-110); Potassium 4.1 mmol/L (3.5-5.1); Sodium 136 mmol/L (136-145)
[2025-07-04] MEDS ORDERED: PROPOFOL 20 ML ONE (07:51)
[2025-07-04] MEDS ORDERED: GLYCOPYRROLATE/PF 0.2 MG/ML VIAL ONE (07:54)
[2025-07-04] MEDS ORDERED: Lidocaine 1% PF 5 ML VIAL ONE (08:22)
[2025-07-04 11:52] VITALS: TEMP 97.4
[2025-07-04 15:31] VITALS: BMI 32.3
[2025-07-04 15:46] VITALS: BP 155/68
== END 2025-07-04 19:10 | DRG 956 ==
LOC: ERS 16:33 → SURG B 06-27 00:14 → 2NO 06-28 22:48 → SURG A 06-30 22:01
PROVIDERS: ADMIT Surgery; ATTEND Surgery
PROC: 0QS606Z Reposition Right Upper Femur with Intramedullary Internal Fixation Device, Open Approach (ICD-10-PCS; principal; 2025-06-27)
PROC: 30233N1 Transfusion of Nonautologous Red Blood Cells into Peripheral Vein, Percutaneous Approach (ICD-10-PCS; 2025-06-30)
PROC: 30233P1 Transfusion of Nonautologous Frozen Red Cells into Peripheral Vein, Percutaneous Approach (ICD-10-PCS; 2025-07-03)
PROC: 0DJ08ZZ Inspection of Upper Intestinal Tract, Via Natural or Artificial Opening Endoscopic (ICD-10-PCS; 2025-07-04)
DX: S72.001A Fracture of unspecified part of neck of right femur, initial encounter for closed fracture (principal); S32.421A Displaced fracture of posterior wall of right acetabulum, initial encounter for closed fracture; J69.0 Pneumonitis due to inhalation of food and vomit; K86.1 Other chronic pancreatitis; M79.7 Fibromyalgia; E11.9 Type 2 diabetes mellitus without complications; F17.210 Nicotine dependence, cigarettes, uncomplicated; K58.9 Irritable bowel syndrome, unspecified; R07.9 Chest pain, unspecified; D50.9 Iron deficiency anemia, unspecified; J43.9 Emphysema, unspecified; G25.81 Restless legs syndrome; Z98.890 Other specified postprocedural states; Z90.49 Acquired absence of other specified parts of digestive tract; Z90.710 Acquired absence of both cervix and uterus; Z79.899 Other long term (current) drug therapy; Z88.8 Allergy status to other drugs, medicaments and biological substances; Z79.84 Long term (current) use of oral hypoglycemic drugs; Z79.890 Hormone replacement therapy
CPT/HCPCS: 36415; 36416; 36430; 71045; 71275; 80048; 80053; 82728; 83540; 83550; 83735; 84443; 84484; 85025; 85610; 85730; 86850; 86900; 86901; 87040; 87081; 87149; 93005; 93010; 93306; 96374; 96375; 96376; C1713; G0390; J0295; J1171; J1200; J1644; J1650; J1790; J1815; J2270; J2405; J2704; J2916; J3010; J3490; J7030; P9016; P9059; Q9967